=== PATIENT | female | born 1945 | race Caucasian/White ===

== ENCOUNTER 2017-11-17 18:08 | Inpatient (IN) ==
--- NOTE | 2017-11-17 19:47 | Emergency Department Note ---
Disposition Clinical Impression: Abdominal wall mass, Hypokalemia, Prolonged QT interval Disposition: Admitted As Inpatient Condition: Good Referrals: Danilo Sharma DO [Primary Care Provider] - Forms: ED Satisfaction Letter, Work/School Release Abdominal Pain HPI - General Chief Complaint: ED Abdominal Pain Stated Complaint: Hernia Time Seen by Provider: 11/17/17 19:30 Source: patient Mode of arrival: ambulatory Limitations: no limitations Nursing Notes Reviewed: Yes Vital Signs Reviewed: Yes - History of Present Illness HPI Narrative: Patient with history of diabetes, CHF, hypertension, previous cholecystectomy, appendectomy, hysterectomy presenting today for evaluation of abdominal pain. She has a known right-sided abdominal hernia which she states has concern because her pain over the last week. The hernia itself is not a fascial defect with reducible contents. Is a bulging to the lateral aspect of her abdomen that is firm. She does have tenderness to this area. The patient has mild erythema over the overlying aspect possibly concerning for her these saucer. The patient herself states that she is had a decreased appetite but no nausea vomiting or change in bowel movements. She has chronic hematuria. No vaginal discharge. No fevers Pain Scale: 5 - Related Data Allergies Allergy/AdvReac Type Severity Reaction Status Date / Time codeine AdvReac Hallucinati Verified 11/17/17 18:12 ng Review of Systems: As Per HPI Constitutional: Denies: fever, chills Cardiovascular: Denies: chest pain, palpitations Respiratory: Denies: cough, dyspnea Gastrointestinal: Reports: abdominal pain, nausea. Denies: vomiting, diarrhea Genitourinary: Denies: urgency, dysuria, frequency Musculoskeletal: Denies: back pain Integumentary: Reports: rash Neurological: Denies: headache Physical Exam General: Well appearing, nontoxic, no acute distress Head: Normocephalic Atraumatic Eyes: PERRL, EOMI ENT: Airway patent, no stridor Neck: supple, no meningismus Chest: Lungs clear to auscultation bilateral Cardiac: Regular rate and rhythm, no murmurs, rubs or gallops Abdomen: soft, tenderness to the right mid and upper abdomen. The hernia is a continuation of the abdomen with no specific defect or contents are reducible. nondistended; no guarding, rebound, or tenderness to percussion Musculoskeletal: Calves symmetric, nontender Skin: Overlying the right side of the abdomen is a linear rash that is raised erythematous lesions approximately a centimeter in size not consistent with cellulitis but possible early zoster. Neuro: Alert and Oriented to person, place, and time; No focal deficit, Course - Reevaluation(s) Reevaluation #1: Discuss CT scan results with the radiologist. The radiologist read it as hematoma versus neoplasm. We had to give this without contrast secondary to her kidney function which limits the ability to see vascular flow. States sarcoma could look similar. The patient symptoms do not correlate with her trauma. She noticed the increasing mass from approximately 2 weeks ago. She is on aspirin. The ultrasound was placed over this area and did not see significant blood flow within the region. However, the patient does have a potassium of 2.6. EKG shows that she has got a prolonged QT which is new from previous. QTC see is 540. The patient will have a magnesium drawn and magnesium and potassium will be replaced. Potassium does correlate to her symptoms of weakness fatigue and generalized muscle cramps. Patient will be admitted for left white management as well as further investigation into mass. - Consultations Consultation #1: Discussed with hospitalist. Patient accepted for admission. Vital Signs Temperature 98.6 F 11/17/17 18:10 Pulse Rate 97 11/17/17 18:10 Respiratory Rate 16 11/17/17 18:10 Blood Pressure 152/89 11/17/17 18:10 O2 Sat by Pulse Oximetry 94 11/17/17 18:10 Temperature 98.6 F 11/17/17 18:10 Pulse Rate 88 11/17/17 19:12 Respiratory Rate 16 11/17/17 19:12 Blood Pressure 129/97 11/17/17 19:12 O2 Sat by Pulse Oximetry 97 11/17/17 19:12 Oxygen Delivery Oxygen Delivery Room Air Abdominal Pain - Lab Data Result diagrams: 11/17/17 19:32 11/17/17 19:32 Lab Results 11/17/17 11/17/17 11/17/17 Range/Units 19:32 19:32 19:40 WBC 15.0 H (4.3-11.1) K/mcL RBC 4.43 (3.82-4.97) M/mcL Hgb 10.4 L (11.5-15.4) g/dL Hct 35.5 (35.3-44.9) % MCV 80.1 L (83.0-100.0) fL MCH 23.5 L (28.0-33.3) pg MCHC 29.3 L (31.6-35.5) g/dL RDW 15.6 H (11.5-14.5) % Plt Count 407 H (140-400) K/mcL MPV 8.2 L (9.4-12.4) fL Immature Gran % 0.9 (0-4) % Seg Neutrophils % 79.8 % Lymphocytes % 10.6 % Monocytes % 6.5 % Eosinophils % 1.9 % Basophils % 0.3 % Neutrophils # 12.0 H (1.6-8.9) K/mcL Lymphocytes # 1.6 (0.6-4.6) K/mcL Monocytes # 1.0 (0.0-1.3) K/mcL Eosinophils # 0.3 (0.0-0.6) K/mcL Basophils # 0.0 (0.0-0.2) K/mcL Sodium 140 (136-145) mEq/L Potassium 2.6 L (3.5-5.1) mEq/L Chloride 93 L (98-107) mEq/L Carbon Dioxide 34 H (23-29) mEq/L BUN 19 (8-23) mg/dL Creatinine 1.52 H (0.60-1.20) mg/dL Est GFR ( Amer) 41 L (> 60) Est GFR (Non-Af Amer) 33 L (> 60) BUN/Creatinine Ratio 13 (6-26) Glucose 130 H (70-105) mg/dL Calculated Osmolality 294 (280-300) Lactic Acid (0.5-2.2) mmol/L Calcium 8.5 L (8.6-10.3) mg/dL Total Bilirubin 0.4 (0.3-1.0) mg/dL Direct Bilirubin 0.1 (0.0-0.2) mg/dL Indirect Bilirubin 0.3 (0.0-1.2) mg/dL AST 17 (13-39) Units/L ALT 11 (7-52) Units/L Alkaline Phosphatase 141 H (34-104) Units/L Troponin I 0.03 (< 0.04) ng/mL Serum Total Protein 7.8 (6.4-8.9) g/dL Albumin 3.1 L (3.5-5.7) g/dL Globulin 4.7 H (2.4-3.5) g/dL Albumin/Globulin Ratio 0.7 L (1.1-2.2) Lipase 36 (11-82) Units/L Urine Color Yellow (Yellow) Urine Clarity Clear (Clear) Urine pH 6.0 (5.0-8.0) pH Units Ur Specific [place] 1.010 (1.010-1.025) Urine Protein Trace (Neg-Trace) mg/dL Urine Glucose (UA) Normal (Normal) mg/dL Urine Ketones Negative (Negative) mg/dL Urine Blood Negative (Negative) Urine Nitrite Negative (Negative) Urine Bilirubin Negative (Negative) Urine Urobilinogen Normal (Normal) mg/dL Ur Leukocyte Esterase Small H (Negative) Urine Microscopic WBC 3-5 H (0-3) per hpf Ur Squamous Epith Cells Moderate H (None-Few) per lpf Urine Bacteria Few (None-Few) per hpf Hyaline Casts Few (None-Few) per lpf Ur Culture Indicated? YES A (NO) 11/17/17 Range/Units 19:52 WBC (4.3-11.1) K/mcL RBC (3.82-4.97) M/mcL Hgb (11.5-15.4) g/dL Hct (35.3-44.9) % MCV (83.0-100.0) fL MCH (28.0-33.3) pg MCHC (31.6-35.5) g/dL RDW (11.5-14.5) % Plt Count (140-400) K/mcL MPV (9.4-12.4) fL Immature Gran % (0-4) % Seg Neutrophils % % Lymphocytes % % Monocytes % % Eosinophils % % Basophils % % Neutrophils # (1.6-8.9) K/mcL Lymphocytes # (0.6-4.6) K/mcL Monocytes # (0.0-1.3) K/mcL Eosinophils # (0.0-0.6) K/mcL Basophils # (0.0-0.2) K/mcL Sodium (136-145) mEq/L Potassium (3.5-5.1) mEq/L Chloride (98-107) mEq/L Carbon Dioxide (23-29) mEq/L BUN (8-23) mg/dL Creatinine (0.60-1.20) mg/dL Est GFR ( Amer) (> 60) Est GFR (Non-Af Amer) (> 60) BUN/Creatinine Ratio (6-26) Glucose (70-105) mg/dL Calculated Osmolality (280-300) Lactic Acid 1.6 (0.5-2.2) mmol/L Calcium (8.6-10.3) mg/dL Total Bilirubin (0.3-1.0) mg/dL Direct Bilirubin (0.0-0.2) mg/dL Indirect Bilirubin (0.0-1.2) mg/dL AST (13-39) Units/L ALT (7-52) Units/L Alkaline Phosphatase (34-104) Units/L Troponin I (< 0.04) ng/mL Serum Total Protein (6.4-8.9) g/dL Albumin (3.5-5.7) g/dL Globulin (2.4-3.5) g/dL Albumin/Globulin Ratio (1.1-2.2) Lipase (11-82) Units/L Urine Color (Yellow) Urine Clarity (Clear) Urine pH (5.0-8.0) pH Units Ur Specific [place] (1.010-1.025) Urine Protein (Neg-Trace) mg/dL Urine Glucose (UA) (Normal) mg/dL Urine Ketones (Negative) mg/dL Urine Blood (Negative) Urine Nitrite (Negative) Urine Bilirubin (Negative) Urine Urobilinogen (Normal) mg/dL Ur Leukocyte Esterase (Negative) Urine Microscopic WBC (0-3) per hpf Ur Squamous Epith Cells (None-Few) per lpf Urine Bacteria (None-Few) per hpf Hyaline Casts (None-Few) per lpf Ur Culture Indicated? (NO)
[2017-11-17 19:52] LABS: Bilirubin,Urine Negative (Negative); Blood,Urine Negative (Negative); Clarity,Urine Clear (Clear); Color,Urine Yellow (Yellow); Glucose,Urine (UA) Normal (Normal); Ketones,Urine Negative (Negative); Leukocyte Esterase,Urine Small (Negative); Nitrite,Urine Negative (Negative); Protein,Urine Trace mg/dL (Neg-Trace); Urobilinogen,Urine Normal (Normal)
[2017-11-17 19:57] LABS: Bacteria,Urine Few per hpf (None-Few); Hyaline Casts,Urine Few per lpf (None-Few); Squamous Epithelial Cell,Urine Moderate per lpf (None-Few)
[2017-11-17 20:03] LABS: Basophils % 0.3 %; Eosinophils # 0.3 K/mcL (0.0-0.6); Eosinophils % 1.9 %; Hematocrit 35.5 % (35.3-44.9); Hemoglobin 10.4 g/dL (11.5-15.4); Immature Granulocytes % 0.9 % (0-4); Lymphocytes # 1.6 K/mcL (0.6-4.6); Lymphocytes % 10.6 %; Mean Corpuscular HGB Conc 29.3 g/dL (31.6-35.5); Mean Corpuscular Hemoglobin 23.5 pg (28.0-33.3); Mean Corpuscular Volume 80.1 fL (83.0-100.0); Mean Platelet Volume 8.2 fL (9.4-12.4); Monocytes % 6.5 %; Platelet Count 407 K/mcL (140-400); Red Blood Count 4.43 M/mcL (3.82-4.97); Red Cell Distribution Width 15.6 % (11.5-14.5); Segmented Neutrophils % 79.8 %
[2017-11-17 20:24] LABS: Albumin 3.1 g/dL (3.5-5.7); Albumin/Globulin Ratio 0.7 (1.1-2.2); Bilirubin,Direct 0.1 mg/dL (0.0-0.2); Bilirubin,Indirect 0.3 mg/dL (0.0-1.2); Bilirubin,Total 0.4 mg/dL (0.3-1.0); Calcium 8.5 mg/dL (8.6-10.3); Globulin 4.7 g/dL (2.4-3.5); Potassium 2.6 mEq/L (3.5-5.1); Total Protein 7.8 g/dL (6.4-8.9); Troponin I 0.03 ng/mL (< 0.04)
[2017-11-17 21:29] LABS: Magnesium 1.5 mg/dL (1.6-2.6)
[2017-11-17] MEDS ORDERED: Acetaminophen 325 MG TABLET PO PRN (22:43)
[2017-11-17] MEDS ORDERED: Naloxone 0.4 MG/ML INJ IVP PRN (22:43)
[2017-11-17] MEDS ORDERED: *HR* Heparin 5,000 UNIT/ML VIAL SQ SCH (22:45)
--- NOTE | 2017-11-17 22:54 | Internal Med History&Physical ---
<Marc Burgess - Last Filed: 11/17/17 23:27> Date of Encounter: 11/17/17 Time of Encounter: 22:52 Internal Medicine - H&P: HPI Chief complaint: abdominal pain Admitted From: Home Plans for Post Hospital Care: Home History of present illness: Ms. Beckham [facility] 72 [facility] that started couple days ago and progressively worsened. Patient does not radiate, is sharp. She denies fever,chills, N/V/D or changes in bowel movement, trauma. Family noted two weeks ago that patient had right sided abdominal bludge that has been increasing in size and today there is some erythema over it. Patient reports he feels like it is about to burst. Patient was concerned she is developing a hernia. She has had hx of hysterectomy, appendectomy and cholecystectomy. She denies weight loss, or history of cancer. She reports gaining 50 pounds in the last year. She reports family hx of lung cancer and her father had prostate cancer. Ct scan showed large soft tissue density mass within the right lateral abdominal wall wiht dimensions of [id number] with differential of rectus sheath hematoma and neoplasm. She was also seen to have elevated WBC, hypokalemia, hypomagnesemia, prolonged QT with QTC 540. Past Med Surg Social Fam HX - Past Medical History Medical history: CHF, COPD, diabetes, hyperlipidemia, hypertension Additional medical history: neuropathy Psychiatric history: depression - Past Surgical History Surgical History: appendectomy, cholecystectomy - Social History Smoking Status: Never smoker Alcohol use: none Drug use: none - Family History Father Hx Family Cancer: Yes (prostate) Mother Hx Family Cancer: Yes (lung) Internal Medicine - H&P: Meds Alendronate Sodium 70 mg PO TU 11/17/17 [History] Aspirin [[place] Aspirin EC] 81 mg PO DAILY 11/17/17 [History] Carvedilol [Coreg] 6.25 mg PO DAILY 11/17/17 [History] Citalopram [CeleXA] 20 mg PO HS 11/17/17 [History] Cyanocobalamin (Vitamin B-12) [B-12] 500 mcg PO DAILY 11/17/17 [History] Esomeprazole Magnesium [Nexium] 40 mg PO DAILY 11/17/17 [History] Furosemide [Lasix] 40 mg PO DAILY 11/17/17 [History] Gabapentin [Neurontin] 800 mg PO HS 11/17/17 [History] Lovastatin [Mevacor] 20 mg PO HS 11/17/17 [History] ALPRAZolam [Xanax 1 MG Tablet] 1 mg PO TID PRN 11/18/17 [History] Mirtazapine [Remeron] 15 mg PO HS 11/18/17 [History] OxyCODONE/APAP 10/325 [Percocet 10/325 MG] 1 each PO BID PRN 11/18/17 [History] Trazodone HCl 300 mg PO HS 11/18/17 [History] 3 Allergy/AdvReac Type Severity Reaction Status Date / Time latex Allergy Rash Verified 11/17/17 21:55 codeine AdvReac Hallucinati Verified 11/17/17 18:12 ng All Systems PM: A 10-system review of systems was performed and is negative for pertinent findings except as documented above in the HPI. Review of systems: Constitutional: Denies fever, chills HEENT: Denies headache, trauma, blurry vision, eye discharge, ear pain, ear discharge neck pain, sore throat, rhinorrhea Heart: Denies chest pain palpitations, LE edema Lungs: Denies shortness of breath cough Abdomen: Reports abdominal pain. denies nausea vomiting diarrhea. Reports right abdominal bulging/ MSK: Denies back pain, falls, joint pain Kidney: Denies dysuria, hematuria Skin: Denies rash, ulcers Neuro: Denies numbness and tingling Psych: denies axniety, depression - Constitutional Vitals: Temp Pulse Resp BP Pulse Ox 98.6 F 88 16 137/70 97 11/17/17 19:30 11/17/17 21:46 11/17/17 21:46 11/17/17 21:46 11/17/17 21:46 Exam: General: pleasant, without distress HEENT: Head atraumatic, normocephalic, EOMI, PERRL, absent ear discharge or trauma, Moist Mucous Membranes, uvula midline Neck: nontender to palpation, absent lymphadenopathy, Cardiovascualr: Regular rate and rhythm with no murmur, absent gallops or rubs, absent pedal edema, radial pulses 2 out of 4 Lungs: Clear to auscultation bilaterally, not in respiratory distress Abdomen: there is firmness and mild tenderness and erythema over the lateral left abdominal wall with palpable outline of a mass, positive bowel sounds, absent hepatomegaly Skin: dry scaly skin over shins, erythema left abdominal wall MSK: absent clubbing, cyanosis, joints without swelling Neuro: Cranial nerves II through XII intact, UE and LE sensation equal bilaterally, UE and LEstrength 5/5, alert oriented 3, Psych: good insight and judgment, Internal Med - H&P Results - Labs CBC & Chem 7: 11/17/17 19:32 11/17/17 19:32 - Assessment and plan (1) Abdominal wall mass Current Visit: Yes Status: Acute Assessment and plan: Patient presents with abdominal pain and is found to have lateral abdominal wall mass on CT abdomen/pelvis size [id number] unclear etiology patient is in [place] therefore could not complete imaging with IV dye tylenol for pain prn patient denies weight loss, N/V/D, hx of cancer plan: abdominal US. consult to surgery. regular diet now and NPO at midnight. (2) Hypomagnesemia Current Visit: Yes Status: Acute Assessment and plan: presented with magnesium of 1.5 replacing recheck in AM (3) Hypokalemia Current Visit: Yes Status: Acute Assessment and plan: potassium was 2.6 will be given total 120meQ recheck in the AM (4) Prolonged QT interval Current Visit: Yes Status: Acute Assessment and plan: 2nd to hypokalemia and hypomagnesemia EKG showed QTC of 540 replacing electrolytes recheck EKG (5) Congestive heart failure Current Visit: Yes Status: Chronic Assessment and plan: hx of congestive heart failure unclear if systolic vs diastolic as patient not seen in [place] for this is on lasix at home will hold 2nd to hypokalemia Qualifiers: Heart failure type: unspecified Heart failure chronicity: chronic Qualified Code(s): I50.9 - Heart failure, unspecified (6) COPD (chronic obstructive pulmonary disease) Current Visit: Yes Status: Chronic Assessment and plan: hx of COPD not in exacerbation 2nd to 2nd hand smoking and 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 BMP in morning. Qualifiers: Chronic kidney disease stage: stage 3 (moderate) Qualified Code(s): N18.3 - Chronic kidney disease, stage 3 (moderate) (8) Asymptomatic bacteriuria Current Visit: Yes Status: Acute Assessment and plan: urinalysis shows few bacteria and leukocyte esterase patient denies dysuria, urinary frequency and urgency she is afebrile no need for antibiotics - Time Spent With Patient Total time spent is greater than 50% in coordination of care (as documented) at patient's floor/unit and/or counseling patient: <Lakhwinder Singh - Last Filed: 11/19/17 08:42> Date of Encounter: 11/17/17 Internal Medicine - H&P: HPI History of present illness: Ms. Beckham is a 72 year old female All Systems PM: A 10-system review of systems was performed and is negative for pertinent findings except as documented above in the HPI. - Constitutional Vitals: Temp Pulse Resp BP Pulse Ox 98.7 F 78 12 116/62 96 11/19/17 06:55 11/19/17 06:55 11/19/17 07:38 11/19/17 06:55 11/19/17 07:38 Internal Med - H&P Results - Labs CBC & Chem 7: 11/19/17 04:00 11/19/17 04:00 Labs: Short CBC 11/19/17 Range/Units 04:00 WBC 13.2 H (4.3-11.1) K/mcL Hgb 9.7 L (11.5-15.4) g/dL Hct 33.2 L (35.3-44.9) % Plt Count 368 (140-400) K/mcL Neutrophils # 10.6 H (1.6-8.9) K/mcL BMP 11/18/17 11/19/17 04:03 04:00 Sodium 139 138 Potassium 3.4 L D 3.8 Chloride 97 L 99 Carbon Dioxide 33 H 31 H BUN 17 16 Creatinine 1.28 H 1.37 H Glucose 121 H 125 H Calcium 8.3 L 8.7 Cardiac Enzymes 11/19/17 Range/Units 04:00 Troponin I 0.03 (< 0.04) ng/mL - Impressions ITS Impressions Retroperitoneal Abscess Drainage 11/18/17 00:00 IMPRESSION: Successful ultrasound guided placement of 10 [place] abscess drainage catheter into the right abdominal wall fluid collection. D/ / Zoran Morgan / Zoran Morgan Interpreting Provider: Zoran Morgan - Assessment and plan (1) Abdominal wall mass Current Visit: Yes Status: Acute (2) Hypokalemia Current Visit: Yes Status: Acute (3) Prolonged QT interval Current Visit: Yes Status: Acute (4) Hypomagnesemia Current Visit: Yes Status: Acute (5) Congestive heart failure Current Visit: Yes Status: Chronic Qualifiers: Heart failure type: unspecified Heart failure chronicity: chronic Qualified Code(s): I50.9 - Heart failure, unspecified (6) COPD (chronic obstructive pulmonary disease) Current Visit: Yes Status: Chronic Qualifiers: COPD type: emphysema Emphysema type: unspecified Qualified Code(s): J43.9 - Emphysema, unspecified (7) CKD (chronic kidney disease) Current Visit: Yes Status: Chronic Qualifiers: Chronic kidney disease stage: stage 3 (moderate) Qualified Code(s): N18.3 - Chronic kidney disease, stage 3 (moderate) (8) Asymptomatic bacteriuria Current Visit: Yes Status: Acute (9) Fall Current Visit: Yes Status: Acute Qualifiers: Encounter type: initial encounter Qualified Code(s): W19.XXXA - Unspecified fall, initial encounter - Time Spent With Patient Total time spent is greater than 50% in coordination of care (as documented) at patient's floor/unit and/or counseling patient: - Attending Attestation Patient seen and examined. Case discussed with resident. Agree with assessment and plan. Surgery consult for the morning for further evaluation of abdominal soft tissue mass
[2017-11-17] MEDS ORDERED: Ipratropium/Albuterol Neb 3 ML IH PRN (23:19)
[2017-11-18] MEDS ORDERED: Naloxone 0.4 MG/ML INJ IVP PRN (00:35)
[2017-11-18 04:30] LABS: Basophils % 0.3 %; Eosinophils # 0.2 K/mcL (0.0-0.6); Eosinophils % 1.3 %; Hematocrit 33.3 % (35.3-44.9); Immature Granulocytes % 0.7 % (0-4); Lymphocytes # 1.3 K/mcL (0.6-4.6); Lymphocytes % 9.4 %; Mean Platelet Volume 8.4 fL (9.4-12.4); Monocytes # 0.8 K/mcL (0.0-1.3); Monocytes % 5.6 %; Neutrophils # 11.2 K/mcL (1.6-8.9); Platelet Count 394 K/mcL (140-400); Red Blood Count 4.16 M/mcL (3.82-4.97); Red Cell Distribution Width 15.7 % (11.5-14.5); Segmented Neutrophils % 82.7 %
[2017-11-18 04:46] LABS: Calcium 8.3 mg/dL (8.6-10.3); Potassium 3.4 mEq/L (3.5-5.1)
[2017-11-18] MEDS: Budesonide/Formoterol 160/4.5 1 PUFF INH IH SCH ×2 (08:04→21:47)
[2017-11-18] MEDS ORDERED: Potassium Chloride 40 MEQ, Lidocaine 1% 2 ML in D5% in Water 500 ML IVPB ONE (08:26)
--- NOTE | 2017-11-18 08:32 | Internal Med Progress Note ---
<Rosa Teresa - Last Filed: 11/18/17 13:10> Hospitalist Progress Note - Encounter Date of Encounter: 11/18/17 Time of Encounter: 08:27 - Subjective Interval History: Mervat is a 72 y/o female with a pmh of DM, COPD, CKD, and CHF who presented to the ED with abdominal pain and found to have an abdominal wall mass. Today patient is stating the pain has worsened overnight, pain is an 8/10. She states that 4 days ago she fell on her back but did not hit her abdomen. She states that her legs just gave out. She denies using SQ insulin or injecting anything into her abdomen. - Exam Vitals: Temp Pulse Resp BP Pulse Ox 99.0 F 99 16 133/68 94 11/18/17 06:50 11/18/17 06:50 11/18/17 08:07 11/18/17 06:50 11/18/17 08:07 Exam: Constitutional: Alert, in no acute distress Head: Normocephalic, atraumatic Heart: Normal, regular rate and rhythm, no murmurs Lungs: Clear to auscultation, no wheezes, rales, or rhonchi Abdomen: diffuse tenderness on the right upper and lower quadrant with maximal point over erythemtous skin, distended on the right, Soft, nontender, bowel sounds present and normal Extremities: No edema, No clubbing, radial pulse +2/4, capillary refill <2sec. Skin: Skin warm and dry,no jaundice Neurologic: Cranial nerves II through XII grossly intact, Psych: Cooperative with exam, good eye contact, cognitive function intact, speech clear, thought process logical, and goal directed - Assessment and Plan (1) Abdominal wall mass Current Visit: Yes Status: Acute Assessment and Plan: CC: abd pain, CT showed large soft tissue density mass within the right lateral abdominal wallwith dimensions of 9 x 10 by 14 cm and mild surrounding induration of subcutaneous tissues, ddx includes rectal sheath hematoma vs. neoplasm (possible sarcoma). Less likely infectious as vitals are normal, mildly elevated WBC but lactic acid normal. IR consulted for biopsy to help differential, believe it to be more of a fluid con collection than a mass. Surgery consulted for management after biopsy. IR aspiration showed tootie pus. Plan: - start Vanco and Zosyn ( 11/18/17) - surgery consulted, awaiting biopsy results - Pain: oxcodone 5mg SL Q6H , Tylenol - diet: regular - dispo: Determine etiology (2) Hypokalemia Current Visit: Yes Status: Acute Assessment and Plan: Likely due to home Lasix without potassium supplement. Initial potassium was 2.6 , replaced potassium with 120meq. Current potassium = 3.4, Plan: -replaced with 40 KCl IV - Will recheck EKG -consider sending home on potassium chloride supplement. (3) Prolonged QT interval Current Visit: Yes Status: Acute Assessment and Plan: EKG showed QTC of 540. 2/2 to hypokalemia and hypomagnesemia. Replaced electrolytes. Plan: -repeat EKG - continue to replace electrolytes as needed (4) Hypomagnesemia Current Visit: Yes Status: Acute Assessment and Plan: Due to hypokalemia caused by Lasix. Presented with magnesium of 1.5, replaced with 4g. Plan: -Mg level pending, replace as needed (5) Congestive heart failure Current Visit: Yes Status: Chronic Assessment and Plan: hx of congestive heart failure, unclear if systolic vs diastolic as patient not seen in [place] for this and no Echo in our records. 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 BMP in morning. (8) Asymptomatic bacteriuria Current Visit: Yes Status: Acute Assessment and Plan: UA shows few bacteria and leukocyte esterase. patient denies dysuria, urinary frequency and urgency. she is afebrile, no need for antibiotics (9) Fall Current Visit: Yes Status: Acute Assessment and Plan: Fall 4 days ago and fell on her back. PT/OT evaluation. DVT Prophylaxis: SCDs due to abdominal mass Heparin SQ contraindicated - Time Spent with Patient Total time spent is greater than 50% in coordination of care (as documented) at patient's floor/unit and/or counseling patient: Plan of Care Discussed with: patient Internal Medicine: Result - Labs CBC & Chem 7: 11/18/17 04:03 11/18/17 04:03 Labs: Short CBC 11/18/17 Range/Units 04:03 WBC 13.5 H (4.3-11.1) K/mcL Hgb 10.0 L (11.5-15.4) g/dL Hct 33.3 L (35.3-44.9) % Plt Count 394 (140-400) K/mcL Neutrophils # 11.2 H (1.6-8.9) K/mcL BMP 11/18/17 04:03 Sodium 139 Potassium 3.4 L D Chloride 97 L Carbon Dioxide 33 H BUN 17 Creatinine 1.28 H Glucose 121 H Calcium 8.3 L Consult Discharge Plan - Plan Referrals: Danilo Sharma DO [Primary Care Provider] - <Joshua Riley - Last Filed: 11/18/17 17:54> Hospitalist Progress Note - Encounter Date of Encounter: 11/18/17 - Exam Vitals: Temp Pulse Resp BP Pulse Ox 99.0 F 94 16 117/82 91 11/18/17 14:02 11/18/17 14:02 11/18/17 14:02 11/18/17 14:02 11/18/17 14:02 - Assessment and Plan (1) Abdominal wall mass Current Visit: Yes Status: Acute (2) Hypokalemia Current Visit: Yes Status: Acute (3) Prolonged QT interval Current Visit: Yes Status: Acute (4) Hypomagnesemia Current Visit: Yes Status: Acute (5) Congestive heart failure Current Visit: Yes Status: Chronic (6) COPD (chronic obstructive pulmonary disease) Current Visit: Yes Status: Chronic (7) CKD (chronic kidney disease) Current Visit: Yes Status: Chronic (8) Asymptomatic bacteriuria Current Visit: Yes Status: Acute (9) Fall Current Visit: Yes Status: Acute - Time Spent with Patient Total time spent is greater than 50% in coordination of care (as documented) at patient's floor/unit and/or counseling patient: Internal Medicine: Result - Labs CBC & Chem 7: 11/18/17 04:03 11/18/17 04:03 Labs: Short CBC 11/18/17 Range/Units 04:03 WBC 13.5 H (4.3-11.1) K/mcL Hgb 10.0 L (11.5-15.4) g/dL Hct 33.3 L (35.3-44.9) % Plt Count 394 (140-400) K/mcL Neutrophils # 11.2 H (1.6-8.9) K/mcL BMP 11/18/17 04:03 Sodium 139 Potassium 3.4 L D Chloride 97 L Carbon Dioxide 33 H BUN 17 Creatinine 1.28 H Glucose 121 H Calcium 8.3 L - Impressions Impressions Retroperitoneal Abscess Drainage 11/18/17 00:00 IMPRESSION: Successful ultrasound guided placement of 10 [place]i abscess drainage catheter into the right abdominal wall fluid collection. D/ / Zoran Morgan / Zoran Morgan Interpreting Provider: Zoran Morgan - Attending Attestation I examined this patient and my medical decision-making was reviewed with the Resident Physician. I agree with the documented findings, disposition and treatment plan as described except to the extent set forth below. <Rosa Teresa - Last Filed: 11/18/17 13:10> (5) Congestive heart failure Qualifiers: Heart failure type: unspecified Heart failure chronicity: chronic Qualified Code(s): I50.9 - Heart failure, unspecified (6) COPD (chronic obstructive pulmonary disease) Qualifiers: COPD type: emphysema Emphysema type: unspecified Qualified Code(s): J43.9 - Emphysema, unspecified (7) CKD (chronic kidney disease) Qualifiers: Chronic kidney disease stage: stage 3 (moderate) Qualified Code(s): N18.3 - Chronic kidney disease, stage 3 (moderate) (9) Fall Qualifiers: Encounter type: initial encounter Qualified Code(s): W19.XXXA - Unspecified fall, initial encounter <Joshua Riley - Last Filed: 11/18/17 17:54> (5) Congestive heart failure Qualifiers: Heart failure type: unspecified Heart failure chronicity: chronic Qualified Code(s): I50.9 - Heart failure, unspecified (6) COPD (chronic obstructive pulmonary disease) Qualifiers: COPD type: emphysema Emphysema type: unspecified Qualified Code(s): J43.9 - Emphysema, unspecified (7) CKD (chronic kidney disease) Qualifiers: Chronic kidney disease stage: stage 3 (moderate) Qualified Code(s): N18.3 - Chronic kidney disease, stage 3 (moderate) (9) Fall Qualifiers: Encounter type: initial encounter Qualified Code(s): W19.XXXA - Unspecified fall, initial encounter
[2017-11-18] MEDS ORDERED: traMADol 50 MG TABLET PO PRN (09:00)
[2017-11-18] MEDS: OXYCODONE Oral CONC 10 MG/0.5 ML ORAL.SYG SL PRN (09:54)
--- NOTE | 2017-11-18 10:28 | IR Procedure Note ---
Date of procedure: 11/18/17 Consent Obtained: Verbal consent, Written consent Timeout: Correct patient and procedure verified, Correct site verified, Time out performed, Skin prep completed Local anesthetic: Lidocaine 1% Indications: right abdominal wall fluid collection Procedure Performed: fluid collection aspiration and drain placement Was there an executive personal assistant present: No Site/Technique: right abd wall Results/Findings: tootie pus aspirated from collection Estimated blood loss (cc): 0 Complications: None; Tolerated procedure well Post Procedure Treatment Plan: drain to suction bulb Specimen: 10 cc pus
[2017-11-18] MEDS: Aspirin Enteric Coated 81 MG Tablet PO SCH (11:32)
[2017-11-18] MEDS: Gabapentin 400 MG CAPSULE PO SCH ×3 (11:38→20:38)
[2017-11-18 13:54] LABS: Magnesium 1.9 mg/dL (1.6-2.6)
[2017-11-18] MEDS ORDERED: Piperacillin/Tazobactam 3.375 GM in D5% in Water (Mini-Bag+) 100 ML IVPB SCH (16:00)
[2017-11-18] MEDS: Piperacillin/Tazobactam 3.375 GM in 0.9 % Sodium Chloride Mini Bag 100 ML IVPB SCH ×2 (16:39→22:45)
[2017-11-18] MEDS ORDERED: Piperacillin/Tazobactam 2.25 GM in 0.9 % Sodium Chloride Mini Bag 100 ML IVPB SCH (18:00)
--- NOTE | 2017-11-18 19:04 | General Surgery Consult Note ---
Date of Encounter: 11/18/17 Time of Encounter: 19:01 History of Present Illness Consult date: 11/18/17 Reason for consult: other (right flank mass) Requesting physician: Marc Burgess History of present illness: This is a delayed Surgical note 72 yo admitted for further evaluation and treatment abdominal pain and right- sided abdominal mass. The patient is described of known right sided abdominal hernia which is reported to have become more painful over the past week. Examination the emergency department did not describe the fascial defect with reducible contents a prominent mass/bulge was evident and described. CT abdomen and pelvis describes a large hiatal hernia with a small amount of fluid within the hernia sac. Mild bibasilar segmental airspace disease is noted as well as a moderate amount of pneumobilia believed to be related to prior sphincterotomy. The osseous structures appear to be intact. A large soft tissue density within the right lateral abdominal wall measuring 9 x 10 x 14 cm is described. Mild surrounding induration of the subcutaneous tissues also described. This mass did not contain any internal gas bubbles or obvious hematocrit level. On my review of this CT the mass appeared to be more fluid such as hematoma or abscess rather than solid mass such as a neoplasm. The patient's past medical history includes diabetes, CHF, hypertension, COPD, hyperlipidemia, depression and a nonspecific neuropathy. Surgical history includes appendectomy and cholecystectomy After reviewing the CT I contacted and spoken with the admitting hospitalist, Dr Medina. There is no evidence of a hernia as the fascial planes deep to the abdominal wall mass were intact. There was no omental or bowel involvement. I recommended that interventional radiology be consulted for percutaneous aspiration and if necessary aerobic and anaerobic cultures. Preparation for this consultation a PT INR was ordered and the subcutaneous heparin discontinued Earlier this morning the patient was seen by interventional radiology, Dr. Morgan. Dr. Ray performed a percutaneous image guided drainage of this mass and describes evacuation of tootie pus. The pus was aspirated and sent for cultures. A drain was placed. Later today I spoke with Dr. Teresa regarding the drainage procedure and whether surgical intervention would become necessary. Recommendations included maintained suction to the drain, await culture results. Continue broad-spectrum antibiotics including anti-MRSA therapy until the cultures direct more specific therapy. Surgical intervention will be deferred pending of the drainage procedure to evacuate the abscess. I will follow along with you and be available should surgical evaluation/ intervention become necessary. Past Med Surg Social Fam HX - Past Medical History Medical history: CHF, COPD, diabetes, hyperlipidemia, hypertension Additional medical history: neuropathy Psychiatric history: depression - Past Surgical History Surgical History: appendectomy, cholecystectomy, hysterectomy - Social History Smoking Status: Never smoker Smokeless Tobacco Status: No Alcohol use: none Drug use: none - Family History Father Hx Family Cancer: Yes (prostate) Mother Hx Family Cancer: Yes (lung) Medications and Allergies Alendronate Sodium 70 mg PO TU 11/17/17 [History] Aspirin [Anson Aspirin EC] 81 mg PO DAILY 11/17/17 [History] Carvedilol [Coreg] 6.25 mg PO DAILY 11/17/17 [History] Citalopram [CeleXA] 20 mg PO HS 11/17/17 [History] Cyanocobalamin (Vitamin B-12) [B-12] 500 mcg PO DAILY 11/17/17 [History] Esomeprazole Magnesium [Nexium] 40 mg PO DAILY 11/17/17 [History] Furosemide [Lasix] 40 mg PO DAILY 11/17/17 [History] Gabapentin [Neurontin] 800 mg PO HS 11/17/17 [History] Lovastatin [Mevacor] 20 mg PO HS 11/17/17 [History] ALPRAZolam [Xanax 1 MG Tablet] 1 mg PO TID PRN 11/18/17 [History] Mirtazapine [Remeron] 15 mg PO HS 11/18/17 [History] OxyCODONE/APAP 10/325 [Percocet 10/325 MG] 1 each PO BID PRN 11/18/17 [History] Trazodone HCl 300 mg PO HS 11/18/17 [History] 3 Allergy/AdvReac Type Severity Reaction Status Date / Time latex Allergy Rash Verified 11/17/17 21:55 codeine AdvReac Hallucinati Verified 11/17/17 18:12 ng Review of Systems All systems PM: The remainder of the systems were reviewed and are negative General Surgery Exam Initial Vital Signs Temp Pulse Resp BP Pulse Ox 98.6 F 97 16 152/89 94 11/17/17 18:10 11/17/17 18:10 11/17/17 18:10 11/17/17 18:10 11/17/17 18:10 Exam Initial Vital Signs Temp Pulse Resp BP Pulse Ox 98.6 F 97 16 152/89 94 11/17/17 18:10 11/17/17 18:10 11/17/17 18:10 11/17/17 18:10 11/17/17 18:10 Results - Labs 11/18/17 04:03 11/18/17 04:03 Abnormal lab results WBC 13.5 K/mcL (4.3-11.1) H 11/18/17 04:03 Hgb 10.0 g/dL (11.5-15.4) L 11/18/17 04:03 Hct 33.3 % (35.3-44.9) L 11/18/17 04:03 MCV 80.0 fL (83.0-100.0) L 11/18/17 04:03 MCH 24.0 pg (28.0-33.3) L 11/18/17 04:03 MCHC 30.0 g/dL (31.6-35.5) L 11/18/17 04:03 RDW 15.7 % (11.5-14.5) H 11/18/17 04:03 MPV 8.4 fL (9.4-12.4) L 11/18/17 04:03 Neutrophils # 11.2 K/mcL (1.6-8.9) H 11/18/17 04:03 Potassium 3.4 mEq/L (3.5-5.1) L D 11/18/17 04:03 Chloride 97 mEq/L (98-107) L 11/18/17 04:03 Carbon Dioxide 33 mEq/L (23-29) H 11/18/17 04:03 Creatinine 1.28 mg/dL (0.60-1.20) H 11/18/17 04:03 Est GFR ( Amer) 49 (> 60) L 11/18/17 04:03 Est GFR (Non-Af Amer) 41 (> 60) L 11/18/17 04:03 Glucose 121 mg/dL (70-105) H 11/18/17 04:03 POC Glucose 121 mg/dL (70-99) H 11/18/17 05:56 Calcium 8.3 mg/dL (8.6-10.3) L 11/18/17 04:03 Alkaline Phosphatase 141 Units/L (34-104) H 11/17/17 19:32 Albumin 3.1 g/dL (3.5-5.7) L 11/17/17 19:32 Globulin 4.7 g/dL (2.4-3.5) H 11/17/17 19:32 Albumin/Globulin Ratio 0.7 (1.1-2.2) L 11/17/17 19:32 Ur Leukocyte Esterase Small (Negative) H 11/17/17 19:40 Urine Microscopic WBC 3-5 per hpf (0-3) H 11/17/17 19:40 Ur Squamous Epith Cells Moderate per lpf (None-Few) H 11/17/17 19:40 Ur Culture Indicated? YES (NO) A 11/17/17 19:40 Diabetes panel 11/18/17 Range/Units 04:03 Sodium 139 (136-145) mEq/L Potassium 3.4 L D (3.5-5.1) mEq/L Chloride 97 L (98-107) mEq/L Carbon Dioxide 33 H (23-29) mEq/L BUN 17 (8-23) mg/dL Creatinine 1.28 H (0.60-1.20) mg/dL Glucose 121 H (70-105) mg/dL Calcium 8.3 L (8.6-10.3) mg/dL Calcium panel 11/18/17 Range/Units 04:03 Calcium 8.3 L (8.6-10.3) mg/dL Pituitary panel 11/18/17 Range/Units 04:03 Sodium 139 (136-145) mEq/L Potassium 3.4 L D (3.5-5.1) mEq/L Chloride 97 L (98-107) mEq/L Carbon Dioxide 33 H (23-29) mEq/L BUN 17 (8-23) mg/dL Creatinine 1.28 H (0.60-1.20) mg/dL Glucose 121 H (70-105) mg/dL Calcium 8.3 L (8.6-10.3) mg/dL Adrenal panel 11/18/17 Range/Units 04:03 Sodium 139 (136-145) mEq/L Potassium 3.4 L D (3.5-5.1) mEq/L Chloride 97 L (98-107) mEq/L Carbon Dioxide 33 H (23-29) mEq/L BUN 17 (8-23) mg/dL Creatinine 1.28 H (0.60-1.20) mg/dL Glucose 121 H (70-105) mg/dL Calcium 8.3 L (8.6-10.3) mg/dL All other labs normal. Consult Discharge Plan - Plan Referrals: Danilo Sharma DO [Primary Care Provider] -
[2017-11-18] MEDS: traZODone 50 MG TABLET PO SCH (20:38)
[2017-11-19] MEDS: OXYCODONE Oral CONC 10 MG/0.5 ML ORAL.SYG SL PRN (03:26)
[2017-11-19 04:17] LABS: Basophils # 0.1 K/mcL (0.0-0.2); Basophils % 0.5 %; Eosinophils # 0.3 K/mcL (0.0-0.6); Eosinophils % 2.4 %; Hematocrit 33.2 % (35.3-44.9); Hemoglobin 9.7 g/dL (11.5-15.4); Immature Granulocytes % 1.4 % (0-4); Lymphocytes # 1.3 K/mcL (0.6-4.6); Lymphocytes % 9.5 %; Mean Corpuscular HGB Conc 29.2 g/dL (31.6-35.5); Mean Corpuscular Hemoglobin 23.7 pg (28.0-33.3); Mean Corpuscular Volume 81.2 fL (83.0-100.0); Mean Platelet Volume 8.1 fL (9.4-12.4); Monocytes # 0.8 K/mcL (0.0-1.3); Monocytes % 6.2 %; Neutrophils # 10.6 K/mcL (1.6-8.9); Platelet Count 368 K/mcL (140-400); Red Blood Count 4.09 M/mcL (3.82-4.97); Red Cell Distribution Width 15.9 % (11.5-14.5)
[2017-11-19 04:30] LABS: INR 1.4; Prothrombin Time 15.9 Seconds (9.4-12.1)
[2017-11-19 04:40] LABS: Calcium 8.7 mg/dL (8.6-10.3); Magnesium 1.8 mg/dL (1.6-2.6); Potassium 3.8 mEq/L (3.5-5.1)
[2017-11-19] MEDS: Piperacillin/Tazobactam 3.375 GM in 0.9 % Sodium Chloride Mini Bag 100 ML IVPB SCH ×3 (06:04→22:07)
[2017-11-19] MEDS: Budesonide/Formoterol 160/4.5 1 PUFF INH IH SCH ×2 (07:37→20:03)
--- NOTE | 2017-11-19 08:04 | Internal Med Progress Note ---
<Rosa Teresa - Last Filed: 11/19/17 08:16> Hospitalist Progress Note - Encounter Date of Encounter: 11/19/17 Time of Encounter: 08:15 - Subjective Interval History: Mervat is a 72 y/o female with a pmh of DM, COPD, CKD, and CHF who presented to the ED with abdominal pain and found to have an abdominal wall mass. Today patient is stating that she is still having pain in the area of the abscess. She does not feel pain his improved since drain placement. Denies SOB, edema. - Exam Vitals: Temp Pulse Resp BP Pulse Ox 98.7 F 78 12 116/62 96 11/19/17 06:55 11/19/17 06:55 11/19/17 07:38 11/19/17 06:55 11/19/17 07:38 Exam: Constitutional: Alert, in no acute distress Head: Normocephalic, atraumatic Heart: Normal, regular rate and rhythm, no murmurs Lungs: Clear to auscultation, no wheezes, rales, or rhonchi Abdomen: diffuse tenderness on the right upper and lower quadrant with maximal point over erythemtous skin with drain in place drainage is brown, opaque fluid, distended on the right, Soft, bowel sounds present and normal Extremities: No edema, No clubbing, radial pulse +2/4, capillary refill <2sec. Skin: Skin warm and dry,no jaundice Neurologic: Cranial nerves II through XII grossly intact, Psych: Cooperative with exam, good eye contact, cognitive function intact, speech clear, thought process logical, and goal directed - Assessment and Plan (1) Abdominal wall mass Current Visit: Yes Status: Acute Assessment and Plan: CC: abd pain, CT showed large soft tissue density mass within the right lateral abdominal wallwith dimensions of 9 x 10 by 14 cm and mild surrounding induration of subcutaneous tissues. IR placed drain which showed pus. Wound and blood cultures collected. Patient placed on Vanc and Zosyn 11/18/17 after cultures obtained. Surgery following clinical course. Plan: - continue Vanco and Zosyn ( 11/18/17) - blood cultures 11/18 - NGTD - wound cultures 11/18 - NGTD, - surgery consulted and following clinical course - Pain: oxcodone 5mg SL Q6H, Tramadol, Tylenol - diet: regular - dispo: awaiting blood and wound cultures (2) Hypokalemia Current Visit: Yes Status: Acute Assessment and Plan: Likely due to home Lasix without potassium supplement. Initial potassium was 2.6 , replaced potassium with 120meq. Current potassium = 3.8. Repeat EKG showed Qtc = 448. Improved with improvement of hypokalemia and hypomagnesemia. Plan: - start potassium 20mg daily, consider going home on due to Lasix use (3) Prolonged QT interval Current Visit: Yes Status: Acute Assessment and Plan: EKG showed QTC of 540. 2/2 to hypokalemia and hypomagnesemia. Replaced electrolytes. Repeat EKG showed Qtc = 448. Improved with improvement of hypokalemia and hypomagnesemia. Plan: - continue to replace electrolytes as needed - avoid prolonging QT meds (4) Hypomagnesemia Current Visit: Yes Status: Acute Assessment and Plan: Due to hypokalemia caused by Lasix. Presented with magnesium of 1.5, replaced with 4g. Mg = 1.8 Plan: -given Mg Oxide 400mg once, repeat level tomorrow (5) Congestive heart failure Current Visit: Yes Status: Chronic Assessment and Plan: hx of congestive heart failure, unclear if systolic vs diastolic as patient not seen in [place] for this and no Echo in our records. Plan: - hypokalemia resolving, can restart Lasix probably tomorrow. 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 BMP in morning. (8) Asymptomatic bacteriuria Current Visit: Yes Status: Acute Assessment and Plan: UA shows few bacteria and leukocyte esterase. patient denies dysuria, urinary frequency and urgency. she is afebrile but now antibiotics for abscess anyways. (9) Fall Current Visit: Yes Status: Acute Assessment and Plan: Fall 4 days ago and fell on her back. PT/OT evaluation. DVT Prophylaxis: SCDs due to abdominal mass Heparin SQ contraindicated - Time Spent with Patient Total time spent is greater than 50% in coordination of care (as documented) at patient's floor/unit and/or counseling patient: Plan of Care Discussed with: patient Internal Medicine: Result - Labs CBC & Chem 7: 11/19/17 04:00 11/19/17 04:00 Labs: Short CBC 11/19/17 Range/Units 04:00 WBC 13.2 H (4.3-11.1) K/mcL Hgb 9.7 L (11.5-15.4) g/dL Hct 33.2 L (35.3-44.9) % Plt Count 368 (140-400) K/mcL Neutrophils # 10.6 H (1.6-8.9) K/mcL BMP 11/18/17 11/19/17 04:03 04:00 Sodium 139 138 Potassium 3.4 L D 3.8 Chloride 97 L 99 Carbon Dioxide 33 H 31 H BUN 17 16 Creatinine 1.28 H 1.37 H Glucose 121 H 125 H Calcium 8.3 L 8.7 Cardiac Enzymes 11/19/17 Range/Units 04:00 Troponin I 0.03 (< 0.04) ng/mL - ABG Interpretation ABG results: PT/INR, D-dimer PT 15.9 Seconds (9.4-12.1) H 11/19/17 04:00 - Impressions Impressions Retroperitoneal Abscess Drainage 11/18/17 00:00 IMPRESSION: Successful ultrasound guided placement of 10 Frisian abscess drainage catheter into the right abdominal wall fluid collection. D/ / Zoran Morgan / Zoran Morgan Interpreting Provider: Zoran Morgan Consult Discharge Plan - Plan Referrals: Danilo Sharma DO [Primary Care Provider] - <Marleny Amato - Last Filed: 11/19/17 15:24> Hospitalist Progress Note - Encounter Date of Encounter: 11/19/17 - Exam Vitals: Temp Pulse Resp BP Pulse Ox 100.7 F H 91 17 125/69 95 11/19/17 15:05 11/19/17 15:05 11/19/17 15:05 11/19/17 15:05 11/19/17 15:05 - Assessment and Plan (1) Abdominal wall mass Current Visit: Yes Status: Acute (2) Hypokalemia Current Visit: Yes Status: Acute (3) Prolonged QT interval Current Visit: Yes Status: Acute (4) Hypomagnesemia Current Visit: Yes Status: Acute (5) Congestive heart failure Current Visit: Yes Status: Chronic (6) COPD (chronic obstructive pulmonary disease) Current Visit: Yes Status: Chronic (7) CKD (chronic kidney disease) Current Visit: Yes Status: Chronic (8) Asymptomatic bacteriuria Current Visit: Yes Status: Acute (9) Fall Current Visit: Yes Status: Acute - Time Spent with Patient Total time spent is greater than 50% in coordination of care (as documented) at patient's floor/unit and/or counseling patient: Internal Medicine: Result - Labs CBC & Chem 7: 11/19/17 04:00 11/19/17 04:00 Labs: Short CBC 11/19/17 Range/Units 04:00 WBC 13.2 H (4.3-11.1) K/mcL Hgb 9.7 L (11.5-15.4) g/dL Hct 33.2 L (35.3-44.9) % Plt Count 368 (140-400) K/mcL Neutrophils # 10.6 H (1.6-8.9) K/mcL BMP 11/19/17 04:00 Sodium 138 Potassium 3.8 Chloride 99 Carbon Dioxide 31 H BUN 16 Creatinine 1.37 H Glucose 125 H Calcium 8.7 Cardiac Enzymes 11/19/17 11/19/17 Range/Units 04:00 09:35 Troponin I 0.03 0.03 (< 0.04) ng/mL - ABG Interpretation ABG results: PT/INR, D-dimer PT 15.9 Seconds (9.4-12.1) H 11/19/17 04:00 - Attending Attestation I examined this patient and my medical decision-making was reviewed with the Resident Physician Dr. Teresa. I agree with the documented findings, disposition and treatment plan as described except to the extent set forth below. Ms. Beckham is a 72 year old female presents wtih cc of right abdominal pain that started couple days ago and progressively worsened. Ct scan showed large soft tissue density mass within the right lateral abdominal wall wiht dimensions of [id number] with differential of rectus sheath hematoma and neoplasm. Pt does have abd wall abscess, evaluated by surgery recommended IR abscess drainage. Patient had percutaneous drainage catheter placed in y/d. She still have some purulent discharge. However overall patient feels better today. Abd: Drainage cath + Heart: SS2+ RRR a/p 1. Acute abdominal wall abscess status post I&D by IR cont drainage cath continue broad-spectrum antibiotic waiting on wound culture appreciate surgery and IR recommendations <Rosa Teresa - Last Filed: 11/19/17 08:16> (5) Congestive heart failure Qualifiers: Heart failure type: unspecified Heart failure chronicity: chronic Qualified Code(s): I50.9 - Heart failure, unspecified (6) COPD (chronic obstructive pulmonary disease) Qualifiers: COPD type: emphysema Emphysema type: unspecified Qualified Code(s): J43.9 - Emphysema, unspecified (7) CKD (chronic kidney disease) Qualifiers: Chronic kidney disease stage: stage 3 (moderate) Qualified Code(s): N18.3 - Chronic kidney disease, stage 3 (moderate) (9) Fall Qualifiers: Encounter type: initial encounter Qualified Code(s): W19.XXXA - Unspecified fall, initial encounter <Marleny Amato - Last Filed: 11/19/17 15:24> (5) Congestive heart failure Qualifiers: Heart failure type: unspecified Heart failure chronicity: chronic Qualified Code(s): I50.9 - Heart failure, unspecified (6) COPD (chronic obstructive pulmonary disease) Qualifiers: COPD type: emphysema Emphysema type: unspecified Qualified Code(s): J43.9 - Emphysema, unspecified (7) CKD (chronic kidney disease) Qualifiers: Chronic kidney disease stage: stage 3 (moderate) Qualified Code(s): N18.3 - Chronic kidney disease, stage 3 (moderate) (9) Fall Qualifiers: Encounter type: initial encounter Qualified Code(s): W19.XXXA - Unspecified fall, initial encounter
[2017-11-19] MEDS ORDERED: Magnesium Oxide 400 MG TABLET PO ONE (09:00)
[2017-11-19] MEDS: Aspirin Enteric Coated 81 MG Tablet PO SCH (09:04)
[2017-11-19] MEDS: Gabapentin 400 MG CAPSULE PO SCH ×3 (09:06→22:06)
--- NOTE | 2017-11-19 14:03 | General Surgery Progress Note ---
Date of Encounter: 11/19/17 Time of Encounter: 13:58 Subjective Patient reports: feels better Narrative: General Surgery - Patient feeling better; diminished abdominal pain since the right anterior lateral abdominal wall abscess was drained. Copious foul-smelling feculent fluid, approximately 55 mL aspirated since placement of the drain yesterday. Patient is currently 99.6 but hemodynamically stable with a pulse of 61, respirations 18, blood pressure 104 65. Abdomen is obese, soft, without significant tenderness. Laboratories: Persistent leukocytosis 13.2; hemoglobin 9.7, hematocrit 33.2 PT 15.9, INR 1.4 Electrolytes within an acceptable range; BUN 16, creatinine 1.37 (history of elevated creatinine dating back to June 2016; estimated GFR ranging from 33-41) Cultures: Gram-negative edu; final identity and sensitivity still pending. Recommendation: Continue broad-spectrum antibiotic therapy until culture results can guide more specific treatment. \ Objective Vital Signs - Last 8 Hours Temp Pulse Resp BP Pulse Ox 11/19/17 10:22 99.6 F 61 18 104/65 100 11/19/17 07:38 12 96 11/19/17 06:55 98.7 F 78 14 116/62 96 Intake and Output 11/18/17 11/19/17 11/19/17 23:59 07:59 15:59 Intake Total 350 / 350 200 / 200 340 / 340 Output Total 20 / 20 470 / 470 Balance 330 / 330 -270 / -270 325 / 325 Intake: IV Fluids 350 / 350 100 / 100 100 / 100 Zosyn 3.375 GM In 0.9 % Sodium 100 / 100 100 / 100 100 / 100 Chloride (Mini-Bag +) 100 ML @ 25 mls/hr IVPB Q8H ITZ Rx#: [id number] Vancocin 1,250 MG In 0.9 % 250 / 250 Sodium Chloride 250 ML @ 166.67 mls/hr IVPB Q24H ITZ Rx#: [id number] Oral 0 / 0 100 / 100 240 / 240 Output: Urine 0 / 0 450 / 450 0 / 0 Wound Drainage 20 / 20 20 / 20 15 / 15 Right Abdomen 20 / 20 20 / 20 15 / 15 Other: Meal Dinner Lunch Percent of Meal Consumed 40% 100% Weight 93 kg Patient Weight 11/19/17 23:59 Weight 93 kg - Labs 11/19/17 04:00 11/19/17 04:00 Diabetes panel 11/19/17 Range/Units 04:00 Sodium 138 (136-145) mEq/L Potassium 3.8 (3.5-5.1) mEq/L Chloride 99 (98-107) mEq/L Carbon Dioxide 31 H (23-29) mEq/L BUN 16 (8-23) mg/dL Creatinine 1.37 H (0.60-1.20) mg/dL Glucose 125 H (70-105) mg/dL Calcium 8.7 (8.6-10.3) mg/dL Calcium panel 11/19/17 Range/Units 04:00 Calcium 8.7 (8.6-10.3) mg/dL Pituitary panel 11/19/17 Range/Units 04:00 Sodium 138 (136-145) mEq/L Potassium 3.8 (3.5-5.1) mEq/L Chloride 99 (98-107) mEq/L Carbon Dioxide 31 H (23-29) mEq/L BUN 16 (8-23) mg/dL Creatinine 1.37 H (0.60-1.20) mg/dL Glucose 125 H (70-105) mg/dL Calcium 8.7 (8.6-10.3) mg/dL Adrenal panel 11/19/17 Range/Units 04:00 Sodium 138 (136-145) mEq/L Potassium 3.8 (3.5-5.1) mEq/L Chloride 99 (98-107) mEq/L Carbon Dioxide 31 H (23-29) mEq/L BUN 16 (8-23) mg/dL Creatinine 1.37 H (0.60-1.20) mg/dL Glucose 125 H (70-105) mg/dL Calcium 8.7 (8.6-10.3) mg/dL Consult Discharge Plan - Plan Referrals: Danilo Sharma DO [Primary Care Provider] -
--- NOTE | 2017-11-19 17:14 | Electrocardiograph Report ---
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
--- NOTE | 2017-11-19 17:31 | Electrocardiograph Report ---
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
--- NOTE | 2017-11-19 17:32 | Electrocardiograph Report ---
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
--- NOTE | 2017-11-19 17:39 | Electrocardiograph Report ---
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
[2017-11-19] MEDS: traZODone 50 MG TABLET PO SCH (21:36)
[2017-11-20] MEDS: Piperacillin/Tazobactam 3.375 GM in 0.9 % Sodium Chloride Mini Bag 100 ML IVPB SCH ×2 (06:02→15:33)
[2017-11-20 06:36] LABS: Hematocrit 29.2 % (35.3-44.9); Hemoglobin 8.5 g/dL (11.5-15.4); Mean Corpuscular HGB Conc 29.1 g/dL (31.6-35.5); Mean Corpuscular Hemoglobin 23.2 pg (28.0-33.3); Mean Corpuscular Volume 79.6 fL (83.0-100.0); Mean Platelet Volume 8.5 fL (9.4-12.4); Platelet Count 311 K/mcL (140-400); Red Blood Count 3.67 M/mcL (3.82-4.97); Red Cell Distribution Width 16.2 % (11.5-14.5)
[2017-11-20 06:44] LABS: Calcium 8.5 mg/dL (8.6-10.3); Magnesium 1.9 mg/dL (1.6-2.6)
[2017-11-20] MEDS: Budesonide/Formoterol 160/4.5 1 PUFF INH IH SCH ×2 (07:21→20:01)
[2017-11-20 08:18] LABS: Eosinophils # 0.3 K/mcL (0.0-0.6); Hypochromasia Present (Not Present); Lymphocytes # 0.3 K/mcL (0.6-4.6); Monocytes # 0.8 K/mcL (0.0-1.3); Neutrophils # 11.9 K/mcL (1.6-8.9)
[2017-11-20] MEDS: Aspirin Enteric Coated 81 MG Tablet PO SCH (09:23)
--- NOTE | 2017-11-20 09:23 | Internal Med Progress Note ---
Hospitalist Progress Note - Encounter Date of Encounter: 11/20/17 Time of Encounter: 08:30 - Subjective Interval History: Ms. Beckham is a 72 year old female presents wtih cc of right abdominal pain that started couple days ago and progressively worsened. Ct scan showed large soft tissue density mass within the right lateral abdominal wall with dimensions of [id number] with differential of rectus sheath hematoma and neoplasm. Pt does have abd wall abscess, evaluated by surgery recommended IR abscess drainage. Patient had percutaneous drainage catheter placed in on 11/18/17. She still have some pus / purulent discharge. Had low grade temp last night with T max 100.7. However overall patient feels better today. - Exam Vitals: Temp Pulse Resp BP Pulse Ox 98.9 F 81 18 129/73 93 11/20/17 07:30 11/20/17 07:30 11/20/17 07:30 11/20/17 07:30 11/20/17 08:20 Exam: Gen: A, A, O x 3 Chest: Diminished BS b/l, o crackles no rales Heart: S1S2 + RRR No murmurs Abd: soft, NT, distended. Drainage cath over RUQ of Abd. Improving erythema and swelling noticed. - Assessment and Plan (1) Abdominal wall abscess Current Visit: Yes Status: Acute Assessment and Plan: s/p I & D by IR on 11/18/17 still has tootie pus draining through cath Surgery recommend irrigation Q shift will talk to surgeon again Fluid cx - G-ve rods, waiting on final report cont broad spec abx - Zosyn and Vanc for now july d/c vanc in AM (2) Abdominal wall cellulitis Current Visit: Yes Status: Acute Assessment and Plan: Improving (3) Abdominal wall mass Current Visit: Yes Status: Acute (4) Hypokalemia Current Visit: Yes Status: Acute Assessment and Plan: Improved (5) Prolonged QT interval Current Visit: Yes Status: Acute Assessment and Plan: EKG showed QTC of 540. 2/2 to hypokalemia and hypomagnesemia. Replaced electrolytes. Repeat EKG showed Qtc = 448. Improved with improvement of hypokalemia and hypomagnesemia. Cont close monitoring cont on Tele (6) Hypomagnesemia Current Visit: Yes Status: Acute Assessment and Plan: resolved (7) Congestive heart failure Current Visit: Yes Status: Chronic Assessment and Plan: hx of congestive heart failure, unclear if systolic vs diastolic as patient not seen in [place] for this and no Echo in our records. (8) COPD (chronic obstructive pulmonary disease) Current Visit: Yes Status: Chronic Assessment and Plan: not in exacerbation cont duonebs prn continue symbicort (9) CKD (chronic kidney disease) Current Visit: Yes Status: Chronic Assessment and Plan: Stable (10) Asymptomatic bacteriuria Current Visit: Yes Status: Acute Assessment and Plan: UA shows few bacteria and leukocyte esterase. However Urine cx - no growth (11) Fall Current Visit: Yes Status: Acute Assessment and Plan: Fall 4 days ago and fell on her back. PT/OT evaluation. - Time Spent with Patient Total time spent is greater than 50% in coordination of care (as documented) at patient's floor/unit and/or counseling patient: Internal Medicine: Result - Labs CBC & Chem 7: 11/20/17 05:57 11/20/17 05:57 Labs: Short CBC 11/20/17 Range/Units 05:57 WBC 13.2 H (4.3-11.1) K/mcL Hgb 8.5 L (11.5-15.4) g/dL Hct 29.2 L (35.3-44.9) % Plt Count 311 (140-400) K/mcL Neutrophils # 11.9 H (1.6-8.9) K/mcL BMP 11/20/17 05:57 Sodium 138 Potassium 4.0 Chloride 104 Carbon Dioxide 28 BUN 18 Creatinine 1.40 H Glucose 117 H Calcium 8.5 L - ABG Interpretation ABG results: PT/INR, D-dimer PT 15.9 Seconds (9.4-12.1) H 11/19/17 04:00 Consult Discharge Plan - Plan Referrals: Danilo Sharma DO [Primary Care Provider] - (7) Congestive heart failure Qualifiers: Heart failure type: unspecified Heart failure chronicity: chronic Qualified Code(s): I50.9 - Heart failure, unspecified (8) COPD (chronic obstructive pulmonary disease) Qualifiers: COPD type: emphysema Emphysema type: unspecified Qualified Code(s): J43.9 - Emphysema, unspecified (9) CKD (chronic kidney disease) Qualifiers: Chronic kidney disease stage: stage 3 (moderate) Qualified Code(s): N18.3 - Chronic kidney disease, stage 3 (moderate) (11) Fall Qualifiers: Encounter type: initial encounter Qualified Code(s): W19.XXXA - Unspecified fall, initial encounter
[2017-11-20] MEDS: Gabapentin 400 MG CAPSULE PO SCH ×2 (09:25→21:26)
[2017-11-20] MEDS: OXYCODONE Oral CONC 10 MG/0.5 ML ORAL.SYG SL PRN ×3 (09:29→21:26)
[2017-11-20] MEDS ORDERED: Acetaminophen 325 MG TABLET PO PRN (09:53)
--- NOTE | 2017-11-20 11:03 | General Surgery Progress Note ---
Date of Encounter: 11/20/17 Time of Encounter: 10:59 Subjective Patient reports: no new complaints, feels better Narrative: General Surgery - Status post percutaneous drainage of large feculent abscess right upper anterior abdominal wall Culture show a pansensitive Escherichia coli. Patient remains afebrile, hemodynamically stable - pulse 81, respirations 18 , blood pressure 129/73 Pain and swelling diminished with percutaneous drainage. Fluid drainage approximately 55 mL for calendar day 11/19/17; 20 mL so far today Source of the abscess remains obscure/unidentified Recommendations: Discontinue Zosyn/vancomycin and initiate oral antibiotic therapy Repeat CT in a.m. for check on interval improvement with drainage and appropriate therapy. As surgery is not anticipated at this time, I will sign off. Thank you for this consultation. Call if needed Objective Vital Signs - Last 8 Hours Temp Pulse Resp BP Pulse Ox 11/20/17 08:20 93 11/20/17 07:30 98.9 F 81 18 129/73 93 11/20/17 07:22 93 11/20/17 03:38 98.8 F 77 18 139/82 93 Intake and Output 11/19/17 11/20/17 11/20/17 23:59 07:59 15:59 Intake Total 590 / 590 100 / 100 460 / 460 Output Total Balance 570 / 570 90 / 90 450 / 450 Intake: IV Fluids 350 / 350 100 / 100 100 / 100 Zosyn 3.375 GM In 0.9 % Sodium 100 / 100 100 / 100 100 / 100 Chloride (Mini-Bag +) 100 ML @ 25 mls/hr IVPB Q8H ITZ Rx#: [id number] Vancocin 1,250 MG In 0.9 % 250 / 250 Sodium Chloride 250 ML @ 166.67 mls/hr IVPB Q24H ITZ Rx#: [id number] Oral 240 / 240 360 / 360 Output: Wound Drainage Right Abdomen Other: Meal Dinner Breakfast Percent of Meal Consumed 85% 95% Stool Size Copious Moderate Stool Consistency soft liquid formed soft Stool Color Brown Brown # Voids 1 # Bowel Movements 1 Weight 92.2 kg Blood Glucose* 131 Patient Weight 11/20/17 23:59 Weight 92.2 kg - Labs 11/20/17 05:57 11/20/17 05:57 Diabetes panel 11/20/17 Range/Units 05:57 Sodium 138 (136-145) mEq/L Potassium 4.0 (3.5-5.1) mEq/L Chloride 104 (98-107) mEq/L Carbon Dioxide 28 (23-29) mEq/L BUN 18 (8-23) mg/dL Creatinine 1.40 H (0.60-1.20) mg/dL Glucose 117 H (70-105) mg/dL Calcium 8.5 L (8.6-10.3) mg/dL Calcium panel 11/20/17 Range/Units 05:57 Calcium 8.5 L (8.6-10.3) mg/dL Pituitary panel 11/20/17 Range/Units 05:57 Sodium 138 (136-145) mEq/L Potassium 4.0 (3.5-5.1) mEq/L Chloride 104 (98-107) mEq/L Carbon Dioxide 28 (23-29) mEq/L BUN 18 (8-23) mg/dL Creatinine 1.40 H (0.60-1.20) mg/dL Glucose 117 H (70-105) mg/dL Calcium 8.5 L (8.6-10.3) mg/dL Adrenal panel 11/20/17 Range/Units 05:57 Sodium 138 (136-145) mEq/L Potassium 4.0 (3.5-5.1) mEq/L Chloride 104 (98-107) mEq/L Carbon Dioxide 28 (23-29) mEq/L BUN 18 (8-23) mg/dL Creatinine 1.40 H (0.60-1.20) mg/dL Glucose 117 H (70-105) mg/dL Calcium 8.5 L (8.6-10.3) mg/dL Consult Discharge Plan - Plan Referrals: Danilo Sharma DO [Primary Care Provider] -
[2017-11-20] MEDS: cefTRIAXone 2,000 MG in Water for inj. (sterile) 20 ML 20 ML IVP SCH (17:55)
[2017-11-20] MEDS: traZODone 50 MG TABLET PO SCH (21:25)
--- NOTE | 2017-11-21 07:37 | Internal Med Progress Note ---
<MalickRosa - Last Filed: 11/21/17 12:32> Hospitalist Progress Note - Encounter Date of Encounter: 11/21/17 Time of Encounter: 10:00 - Subjective Interval History: Mervat is a 72 y/o female with a pmh of DM, COPD, CKD, and CHF who presented to the ED with abdominal pain and found to have an abdominal wall mass. Today patient is stating that she is still having pain in the area of the abscess but overall improvement since admission. - Exam Vitals: Temp Pulse Resp BP Pulse Ox 97.9 F 87 20 125/85 94 11/21/17 06:39 11/21/17 06:39 11/21/17 06:39 11/21/17 06:39 11/21/17 06:39 Exam: Constitutional: Alert, in no acute distress Head: Normocephalic, atraumatic Heart: Normal, regular rate and rhythm, no murmurs Lungs: On NC Clear to auscultation, no wheezes, rales, or rhonchi Abdomen: diffuse tenderness on the right upper and lower quadrant with drain in place drainage is brown, opaque fluid, distended on the right, Soft Extremities: No edema, No clubbing, radial pulse +2/4, capillary refill <2sec. Skin: Skin warm and dry,no jaundice Neurologic: Cranial nerves II through XII grossly intact, Psych: Cooperative with exam, good eye contact, cognitive function intact, speech clear, thought process logical, and goal directed - Assessment and Plan (1) Abdominal wall mass Current Visit: Yes Status: Acute Assessment and Plan: CC: abd pain, CT showed large soft tissue density mass within the right lateral abdominal wallwith dimensions of 9 x 10 by 14 cm and mild surrounding induration of subcutaneous tissues. IR placed drain which showed pus. Wound and blood cultures collected. Patient placed on Vanc and Zosyn 11/18/17 after cultures obtained. Surgery following clinical course. Plan: - abd CT scan this AM, slight decrease in size - restarted Vanco (day 1), continue Ceftriaxone ( day 2) - blood cultures 11/18 - NGTD - wound cultures 11/18 - e coli, gram + cocci - surgery consulted, appreciate recommendations for surgery - Pain: oxcodone 5mg SL Q6H, Tramadol, Tylenol - diet: regular, NPO at midnight - dispo: awaiting wound cultures sensitivities (2) Hypokalemia Current Visit: Yes Status: Acute Assessment and Plan: Resolved. (3) Prolonged QT interval Current Visit: Yes Status: Acute Assessment and Plan: EKG showed QTC of 540. 2/2 to hypokalemia and hypomagnesemia. Replaced electrolytes. Repeat EKG showed Qtc = 448. Improved with improvement of hypokalemia and hypomagnesemia. Plan: Cont close monitoring cont on Tele (4) Hypomagnesemia Current Visit: Yes Status: Acute Assessment and Plan: resolved (5) Congestive heart failure Current Visit: Yes Status: Chronic Assessment and Plan: hx of congestive heart failure, unclear if systolic vs diastolic as patient not seen in [place] for this and no Echo in our records. Plan: - restarted Lasix today as patient's O2 need increased (6) COPD (chronic obstructive pulmonary disease) Current Visit: Yes Status: Chronic Assessment and Plan: not in exacerbation. Plan: cont duonebs prn continue symbicort (7) CKD (chronic kidney disease) Current Visit: Yes Status: Chronic Assessment and Plan: Stable. Creatinine = 1.40 today. Plan: - avoid nephrotoxin meds (8) Asymptomatic bacteriuria Current Visit: Yes Status: Acute Assessment and Plan: UA shows few bacteria and leukocyte esterase. However Urine cx - no growth (9) Fall Current Visit: Yes Status: Acute Assessment and Plan: Fall 4 days ago and fell on her back. PT/OT evaluation. Recommend SNF after discharge. (10) Abdominal wall cellulitis Current Visit: Yes Status: Acute Assessment and Plan: Less redness on skin. - Time Spent with Patient Total time spent is greater than 50% in coordination of care (as documented) at patient's floor/unit and/or counseling patient: Internal Medicine: Result - Labs CBC & Chem 7: 11/21/17 06:08 11/21/17 10:25 Labs: Short CBC 11/20/17 Range/Units 05:57 Neutrophils # 11.9 H (1.6-8.9) K/mcL - ABG Interpretation ABG results: PT/INR, D-dimer PT 15.9 Seconds (9.4-12.1) H 11/19/17 04:00 Consult Discharge Plan - Plan Referrals: Danilo Sharma DO [Primary Care Provider] - <Marleny Amato - Last Filed: 11/21/17 15:45> Hospitalist Progress Note - Encounter Date of Encounter: 11/21/17 - Exam Vitals: Temp Pulse Resp BP Pulse Ox 100.0 F H 69 18 119/59 97 11/21/17 14:04 11/21/17 14:04 11/21/17 14:04 11/21/17 14:04 11/21/17 14:04 - Assessment and Plan (1) Abdominal wall mass Current Visit: Yes Status: Acute (2) Hypokalemia Current Visit: Yes Status: Acute (3) Prolonged QT interval Current Visit: Yes Status: Acute (4) Hypomagnesemia Current Visit: Yes Status: Acute (5) Congestive heart failure Current Visit: Yes Status: Chronic (6) COPD (chronic obstructive pulmonary disease) Current Visit: Yes Status: Chronic (7) CKD (chronic kidney disease) Current Visit: Yes Status: Chronic (8) Asymptomatic bacteriuria Current Visit: Yes Status: Acute (9) Fall Current Visit: Yes Status: Acute (10) Abdominal wall cellulitis Current Visit: Yes Status: Acute - Time Spent with Patient Total time spent is greater than 50% in coordination of care (as documented) at patient's floor/unit and/or counseling patient: Internal Medicine: Result - Labs CBC & Chem 7: 11/21/17 06:08 11/21/17 10:25 Labs: Short CBC 11/21/17 Range/Units 06:08 WBC 14.3 H (4.3-11.1) K/mcL Hgb 8.7 L (11.5-15.4) g/dL Hct 30.3 L (35.3-44.9) % Plt Count 308 (140-400) K/mcL Neutrophils # 11.0 H (1.6-8.9) K/mcL BMP 11/21/17 10:25 Creatinine 1.26 H - ABG Interpretation ABG results: PT/INR, D-dimer PT 15.9 Seconds (9.4-12.1) H 11/19/17 04:00 - Impressions Impressions Abdomen/Pelvis CT 11/21/17 09:30 IMPRESSION: 1. Slight decreasing 12 cm complex fluid collection, likely due to an abscess, within the right lower quadrant anterior abdominal wall status post percutaneous drain. D/ / Jack Rios MD / Jack Rios MD Interpreting Provider: Jack Rios MD - Attending Attestation I examined this patient and my medical decision-making was reviewed with the Resident Physician Dr. Teresa. I agree with the documented findings, disposition and treatment plan as described except to the extent set forth below. Ms. Beckham is a 72 year old female presents wtih cc of right abdominal pain that started couple days ago and progressively worsened. Ct scan showed large soft tissue density mass within the right lateral abdominal wall wiht dimensions of [id number] with differential of rectus sheath hematoma and neoplasm. Pt does have abd wall abscess, evaluated by surgery recommended IR abscess drainage. Patient had percutaneous drainage catheter placed in y/d. She still have some purulent discharge. However overall patient feels better today. Abd: Drainage cath + Heart: SS2+ RRR a/p 1. Acute abdominal wall abscess 2. Abd wall cellulites status post I&D by IR WBC started trending up again Wound cx - E. Coli and G+ve cocci Rocephin + added Vancomycin Repeat CT showed still has significant abscess Talked to Dr. Parsons who is planning on on taking her to [place] in [place] cont drainage cath <Rosa Teresa - Last Filed: 11/21/17 12:32> (5) Congestive heart failure Qualifiers: Heart failure type: unspecified Heart failure chronicity: chronic Qualified Code(s): I50.9 - Heart failure, unspecified (6) COPD (chronic obstructive pulmonary disease) Qualifiers: COPD type: emphysema Emphysema type: unspecified Qualified Code(s): J43.9 - Emphysema, unspecified (7) CKD (chronic kidney disease) Qualifiers: Chronic kidney disease stage: stage 3 (moderate) Qualified Code(s): N18.3 - Chronic kidney disease, stage 3 (moderate) (9) Fall Qualifiers: Encounter type: initial encounter Qualified Code(s): W19.XXXA - Unspecified fall, initial encounter <Marleny Amato - Last Filed: 11/21/17 15:45> (5) Congestive heart failure Qualifiers: Heart failure type: unspecified Heart failure chronicity: chronic Qualified Code(s): I50.9 - Heart failure, unspecified (6) COPD (chronic obstructive pulmonary disease) Qualifiers: COPD type: emphysema Emphysema type: unspecified Qualified Code(s): J43.9 - Emphysema, unspecified (7) CKD (chronic kidney disease) Qualifiers: Chronic kidney disease stage: stage 3 (moderate) Qualified Code(s): N18.3 - Chronic kidney disease, stage 3 (moderate) (9) Fall Qualifiers: Encounter type: initial encounter Qualified Code(s): W19.XXXA - Unspecified fall, initial encounter
[2017-11-21] MEDS: Budesonide/Formoterol 160/4.5 1 PUFF INH IH SCH ×2 (07:58→21:41)
[2017-11-21] MEDS ORDERED: Vancomycin 1 EACH in 0.9 % Sodium Chloride 250 ML IVPB PRN (08:00)
[2017-11-21 08:05] LABS: Eosinophils % 4.3 %; Immature Granulocytes % 1.3 % (0-4)
[2017-11-21 08:06] LABS: Basophils % 0.3 %; Eosinophils # 0.6 K/mcL (0.0-0.6); Hematocrit 30.3 % (35.3-44.9); Hemoglobin 8.7 g/dL (11.5-15.4); Lymphocytes # 1.4 K/mcL (0.6-4.6); Lymphocytes % 9.6 %; Mean Corpuscular HGB Conc 28.7 g/dL (31.6-35.5); Mean Corpuscular Hemoglobin 23.9 pg (28.0-33.3); Mean Corpuscular Volume 83.2 fL (83.0-100.0); Mean Platelet Volume 8.6 fL (9.4-12.4); Monocytes # 1.1 K/mcL (0.0-1.3); Monocytes % 7.5 %; Platelet Count 308 K/mcL (140-400); Red Blood Count 3.64 M/mcL (3.82-4.97); Red Cell Distribution Width 16.1 % (11.5-14.5)
[2017-11-21 09:05] LABS: Polychromasia 1+ (Not Present)
[2017-11-21 09:06] LABS: Platelet Estimate Normal (Normal)
[2017-11-21] MEDS: Gabapentin 400 MG CAPSULE PO SCH ×2 (09:44→21:21)
[2017-11-21] MEDS: Aspirin Enteric Coated 81 MG Tablet PO SCH (09:45)
[2017-11-21] MEDS ORDERED: Vancomycin 500 MG in 0.9 % Sodium Chloride Mini Bag 100 ML IVPB ONE (12:00)
--- NOTE | 2017-11-21 12:31 | General Surgery Consult Note ---
Date of Encounter: 11/21/17 Time of Encounter: 12:21 History of Present Illness Requesting physician: Marleny Amato History of present illness: General Surgery - Called to see patient regarding persistent abscess right upper anterior abdominal wall. Percutaneous drainage completed by [facility], 11/18/17. Thick foul-smelling feculent material was evacuated. Cultures show pansensitive Escherichia coli. There has been delayed identification of a gram-positive cocci - presumptive Streptococcus anginosus. The patient remains afebrile, hemodynamically stable but leukocytosis has increased to 14.3; differential notable for neutrophilia 11.0 The abdominal wall is nontender except where the drain enters the skin. There are no elicited peritoneal signs Daily Larry-López drainage ranging from approximately 55 mL for calendar day ; 45 mL for calendar day 11/20 and 80 mL so far today. CT this AM demonstrates new trace bilateral pleural effusions with atelectasis; an incompletely imaged moderate to large hiatal hernia; stable moderate intrahepatic and extrahepatic ductal dilatation with pneumobilia; only a slight decrease in the complex fluid collection in the subcutaneous tissue right upper anterior abdominal wall. This abscess cavity initially measured 7.3 x 12 cm, it currently measures 6.1 x 12 cm The fluid is extremely thick, foul-smelling and feculent. It does not appear that the drain will be sufficient to evacuate this abscess cavity. Surgical debridement has been recommended. I have discussed this with Dr. Amtao as well as the patient. Risks of surgery include continued infection, persistent or recurrent abscess, failure to heal, respiratory failure, worsening CHF. The patient expresses understanding and is willing to proceed with the recommended surgical debridement. Consent has been obtained. Past Med Surg Social Fam HX - Past Medical History Medical history: CHF, COPD, diabetes, hyperlipidemia, hypertension Additional medical history: neuropathy Psychiatric history: depression - Past Surgical History Surgical History: appendectomy, cholecystectomy, hysterectomy - Social History Smoking Status: Never smoker Smokeless Tobacco Status: No Alcohol use: none Drug use: none - Family History Father Hx Family Cancer: Yes (prostate) Mother Hx Family Cancer: Yes (lung) Medications and Allergies Alendronate Sodium 70 mg PO TU 11/17/17 [History] Aspirin [[place] Aspirin EC] 81 mg PO DAILY 11/17/17 [History] Carvedilol [Coreg] 6.25 mg PO DAILY 11/17/17 [History] Citalopram [CeleXA] 20 mg PO HS 11/17/17 [History] Cyanocobalamin (Vitamin B-12) [B-12] 500 mcg PO DAILY 11/17/17 [History] Esomeprazole Magnesium [Nexium] 40 mg PO DAILY 11/17/17 [History] Furosemide [Lasix] 40 mg PO DAILY 11/17/17 [History] Gabapentin [Neurontin] 800 mg PO HS 11/17/17 [History] Lovastatin [Mevacor] 20 mg PO HS 11/17/17 [History] ALPRAZolam [Xanax 1 MG Tablet] 1 mg PO TID PRN 11/18/17 [History] Mirtazapine [Remeron] 15 mg PO HS 11/18/17 [History] OxyCODONE/APAP 10/325 [Percocet 10/325 MG] 1 each PO BID PRN 11/18/17 [History] Trazodone HCl 300 mg PO HS 11/18/17 [History] 3 Allergy/AdvReac Type Severity Reaction Status Date / Time latex Allergy Rash Verified 11/17/17 21:55 codeine AdvReac Hallucinati Verified 11/17/17 18:12 ng Review of Systems All systems PM: The remainder of the systems were reviewed and are negative General Surgery Exam Initial Vital Signs Temp Pulse Resp BP Pulse Ox 98.6 F 97 16 152/89 94 11/17/17 18:10 11/17/17 18:10 11/17/17 18:10 11/17/17 18:10 11/17/17 18:10 Exam Initial Vital Signs Temp Pulse Resp BP Pulse Ox 98.6 F 97 16 152/89 94 11/17/17 18:10 11/17/17 18:10 11/17/17 18:10 11/17/17 18:10 11/17/17 18:10 Results - Labs 11/21/17 06:08 11/21/17 10:25 Abnormal lab results WBC 14.3 K/mcL (4.3-11.1) H 11/21/17 06:08 RBC 3.64 M/mcL (3.82-4.97) L 11/21/17 06:08 Hgb 8.7 g/dL (11.5-15.4) L 11/21/17 06:08 Hct 30.3 % (35.3-44.9) L 11/21/17 06:08 MCH 23.9 pg (28.0-33.3) L 11/21/17 06:08 MCHC 28.7 g/dL (31.6-35.5) L 11/21/17 06:08 RDW 16.1 % (11.5-14.5) H 11/21/17 06:08 MPV 8.6 fL (9.4-12.4) L 11/21/17 06:08 Neutrophils # 11.0 K/mcL (1.6-8.9) H 11/21/17 06:08 Polychromasia 1+ (Not Present) A 11/21/17 06:08 Hypochromasia Present (Not Present) A 11/20/17 05:57 PT 15.9 Seconds (9.4-12.1) H 11/19/17 04:00 Creatinine 1.26 mg/dL (0.60-1.20) H 11/21/17 10:25 Est GFR ( Amer) 50 (> 60) L 11/21/17 10:25 Est GFR (Non-Af Amer) 42 (> 60) L 11/21/17 10:25 Glucose 117 mg/dL (70-105) H 11/20/17 05:57 POC Glucose 131 mg/dL (70-99) H 11/19/17 22:04 Calcium 8.5 mg/dL (8.6-10.3) L 11/20/17 05:57 Alkaline Phosphatase 141 Units/L (34-104) H 11/17/17 19:32 Albumin 3.1 g/dL (3.5-5.7) L 11/17/17 19:32 Globulin 4.7 g/dL (2.4-3.5) H 11/17/17 19:32 Albumin/Globulin Ratio 0.7 (1.1-2.2) L 11/17/17 19:32 Ur Leukocyte Esterase Small (Negative) H 11/17/17 19:40 Urine Microscopic WBC 3-5 per hpf (0-3) H 11/17/17 19:40 Ur Squamous Epith Cells Moderate per lpf (None-Few) H 11/17/17 19:40 Ur Culture Indicated? YES (NO) A 11/17/17 19:40 Diabetes panel 11/21/17 Range/Units 10:25 Creatinine 1.26 H (0.60-1.20) mg/dL Pituitary panel 11/21/17 Range/Units 10:25 Creatinine 1.26 H (0.60-1.20) mg/dL Adrenal panel 11/21/17 Range/Units 10:25 Creatinine 1.26 H (0.60-1.20) mg/dL All other labs normal. Consult Discharge Plan - Plan Referrals: Danilo Sharma DO [Primary Care Provider] -
[2017-11-21] MEDS: cefTRIAXone 2,000 MG in Water for inj. (sterile) 20 ML 20 ML IVP SCH (17:21)
--- NOTE | 2017-11-21 18:42 | Anesthesia Evaluation PreOp ---
Date of Encounter: 11/21/17 Time of Encounter: 21:34 - Past History Planned Operation: EXCISION OF ABDOMINAL WALL ABCESS Cardiac History: HTN, Hyperlipidemia Pulmonary History: COPD (SEVERE, HOME O2 3LPM) [employer] History: Other (ANXIETY, DEPRESSION) Other Medical History: Renal (CKD), Diabetes Type II, GERD (LARGE HIATAL HERNIA BY CT SCAN), Other (MORBID OBESITY, BMI 46, ANEMIA) Anesthesia History: No Prior Anesthetic Complications, Past Anesthesia ( appendectomy, cholecystectomy, hysterectomy) Alcohol Use: none Drug use: none Medications and Allergies Alendronate Sodium 70 mg PO TU 11/17/17 [History] Aspirin [[place] Aspirin EC] 81 mg PO DAILY 11/17/17 [History] Carvedilol [Coreg] 6.25 mg PO DAILY 11/17/17 [History] Citalopram [CeleXA] 20 mg PO HS 11/17/17 [History] Cyanocobalamin (Vitamin B-12) [B-12] 500 mcg PO DAILY 11/17/17 [History] Esomeprazole Magnesium [Nexium] 40 mg PO DAILY 11/17/17 [History] Furosemide [Lasix] 40 mg PO DAILY 11/17/17 [History] Gabapentin [Neurontin] 800 mg PO HS 11/17/17 [History] Lovastatin [Mevacor] 20 mg PO HS 11/17/17 [History] ALPRAZolam [Xanax 1 MG Tablet] 1 mg PO TID PRN 11/18/17 [History] Mirtazapine [Remeron] 15 mg PO HS 11/18/17 [History] OxyCODONE/APAP 10/325 [Percocet 10/325 MG] 1 each PO BID PRN 11/18/17 [History] Trazodone HCl 300 mg PO HS 11/18/17 [History] 3 Allergy/AdvReac Type Severity Reaction Status Date / Time latex Allergy Rash Verified 11/17/17 21:55 codeine AdvReac Hallucinati Verified 11/17/17 18:12 ng - Meds/Allergy Pre-op Review Medications Reviewed: Yes Allergies Reviewed: Yes Beta Blockers on Current Med List: Yes If Beta Blockers taken, Date/Time (Last Dose taken): SEE MAR Anesthesia Results - Labs 11/21/17 06:08 11/21/17 10:25 Laboratory Last Values PT 15.9 Seconds (9.4-12.1) H 11/19/17 04:00 Creatinine 1.26 mg/dL (0.60-1.20) H 11/21/17 10:25 Est GFR ( Amer) 50 (> 60) L 11/21/17 10:25 Est GFR (Non-Af Amer) 42 (> 60) L 11/21/17 10:25 Alkaline Phosphatase 141 Units/L (34-104) H 11/17/17 19:32 Potassium 4.0 mEq/L (3.5-5.1) 11/20/17 05:57 Chloride 104 mEq/L (98-107) 11/20/17 05:57 Carbon Dioxide 28 mEq/L (23-29) 11/20/17 05:57 BUN 18 mg/dL (8-23) 11/20/17 05:57 Creatinine 1.26 mg/dL (0.60-1.20) H 11/21/17 10:25 Est GFR ( Amer) 50 (> 60) L 11/21/17 10:25 Est GFR (Non-Af Amer) 42 (> 60) L 11/21/17 10:25 Calcium 8.5 mg/dL (8.6-10.3) L 11/20/17 05:57 Magnesium 1.9 mg/dL (1.6-2.6) 11/20/17 05:57 - Imaging EKG: report reviewed Anesthesia Exam Vital Signs/O2 Sat/Glucose, Most Recent Temp Pulse Resp BP Pulse Ox 100.0 F H 69 18 119/59 97 11/21/17 14:04 11/21/17 14:04 11/21/17 14:04 11/21/17 14:04 11/21/17 14:04 Blood Glucose* 131 HEIGHT 1.42 m WEIGHT 93 kg BMI 46 NPO (# of Hours): 8 - HEENT Mallampati: II Teeth: Edentulous Denture Type: Upper: Complete, Lower: Complete Oral Opening: Greater than 3 - Cardiac Rhythm: Regular - Pulmonary Breath Sounds: bilateral Clear Respiratory Effort: Symmetrical - Additional Findings Active Medications Albuterol/Ipratropium (Duoneb) 3 ml IH [id number] PRN PRN Reason: Shortness Of Breath/Wheezing Stop: 05/19/18 23:20 Last Admin: 11/19/17 16:30 Dose: 3 ml Aspirin (Aspirin Ec) 81 mg PO DAILY ITZ Stop: 05/20/18 09:01 Last Admin: 11/21/17 09:45 Dose: 81 mg Budesonide/Formoterol Fumarate (Symbicort) 1 puff IH BIDRESP ITZ PRN Reason: Protocol Stop: 05/20/18 10:01 Last Admin: 11/21/17 07:58 Dose: 1 puff Carvedilol (Coreg) 6.25 mg PO DAILY ITZ PRN Reason: Protocol Stop: 05/20/18 09:01 Last Admin: 11/21/17 09:45 Dose: 6.25 mg Citalopram Hydrobromide (Celexa) 20 mg PO DAILY ITZ Stop: 05/20/18 09:01 Last Admin: 11/21/17 09:44 Dose: 20 mg Gabapentin (Neurontin) 800 mg PO BID ITZ Stop: 05/22/18 21:01 Last Admin: 11/21/17 09:44 Dose: 800 mg Ceftriaxone Sodium 2,000 mg/ (Sterile Water) 20 mls @ 600 mls/hr IVP Q24H ITZ Stop: 05/22/18 17:01 Last Admin: 11/21/17 17:21 Dose: 600 mls/hr Vancomycin HCl 1 each/ Sodium (Chloride) 250 mls @ 167 mls/hr IVPB RPHPROT PRN ; Protocol PRN Reason: VANCOMYCIN Stop: 05/23/18 08:01 Omeprazole (Prilosec) 40 mg PO DAILY ITZ Stop: 05/20/18 09:01 Last Admin: 11/21/17 09:45 Dose: 40 mg Oxycodone HCl (Oxycodone Oral Conc) 5 mg SL Q6HR PRN; Protocol PRN Reason: Severe Pain Stop: 05/20/18 09:01 Last Admin: 11/20/17 21:26 Dose: 5 mg Potassium Chloride (Potassium Chloride) 20 meq PO DAILY ITZ Stop: 05/21/18 09:01 Last Admin: 11/21/17 09:45 Dose: 20 meq Simvastatin (Zocor) 10 mg PO HS ITZ Stop: 05/20/18 21:01 Last Admin: 11/20/17 21:26 Dose: 10 mg Tramadol HCl (Ultram) 50 mg PO Q8HR PRN PRN Reason: Moderate Pain Stop: 05/20/18 09:01 Last Admin: 11/21/17 09:45 Dose: 50 mg Trazodone HCl (Trazodone) 300 mg PO HS ITZ Stop: 05/20/18 21:01 Last Admin: 11/20/17 21:25 Dose: 300 mg Anesthesia Assess/Plan ASA Score: 3 Modified [place] Scale for Level of Consciousness: Cooperative, oriented, and tranquil Anesthetic Plan: General Monitoring Plan: Standard Monitors Recovery Plan: PACU Anes Supervising Prov Stmt: Patient informed and consented. Risks, benefits, and alternatives discussed. Patient wishes to proceed.
[2017-11-21] MEDS: traZODone 50 MG TABLET PO SCH (21:20)
[2017-11-21] MEDS: Furosemide 40 MG TABLET PO SCH (21:25)
[2017-11-21] MEDS: OXYCODONE Oral CONC 10 MG/0.5 ML ORAL.SYG SL PRN (21:33)
[2017-11-22 06:10] LABS: Immature Granulocytes % 1.6 % (0-4)
[2017-11-22 06:11] LABS: Basophils # 0.1 K/mcL (0.0-0.2); Basophils % 0.5 %; Eosinophils # 0.5 K/mcL (0.0-0.6); Eosinophils % 4.7 %; Hematocrit 28.9 % (35.3-44.9); Hemoglobin 8.2 g/dL (11.5-15.4); Lymphocytes # 1.4 K/mcL (0.6-4.6); Lymphocytes % 12.3 %; Mean Corpuscular HGB Conc 28.4 g/dL (31.6-35.5); Mean Corpuscular Hemoglobin 23.1 pg (28.0-33.3); Mean Corpuscular Volume 81.4 fL (83.0-100.0); Mean Platelet Volume 8.5 fL (9.4-12.4); Monocytes # 0.9 K/mcL (0.0-1.3); Monocytes % 7.8 %; Neutrophils # 8.1 K/mcL (1.6-8.9); Platelet Count 307 K/mcL (140-400); Red Blood Count 3.55 M/mcL (3.82-4.97); Red Cell Distribution Width 15.9 % (11.5-14.5); Segmented Neutrophils % 73.1 %
[2017-11-22 06:25] LABS: Hypochromasia Present (Not Present); Platelet Estimate Normal (Normal)
[2017-11-22] MEDS: Budesonide/Formoterol 160/4.5 1 PUFF INH IH SCH ×2 (07:42→20:19)
[2017-11-22 08:36] LABS: BUN/Creatinine Ratio 12 (6-26); Blood Urea Nitrogen 14 mg/dL (8-23); Calcium 8.8 mg/dL (8.6-10.3); Carbon Dioxide 27 mEq/L (23-29); Chloride 106 mEq/L (98-107); Ferritin 185 ng/mL (10-120); Glucose 110 mg/dL (70-105); Iron < 10 mcg/dL (50-170); Osmolality,Calculated 289 (280-300); Potassium 4.7 mEq/L (3.5-5.1); Sodium 139 mEq/L (136-145); Transferrin 150 mg/dL (203-362); eGFR For Non-African Americans 44 (> 60)
[2017-11-22] MEDS: Furosemide 40 MG TABLET PO SCH (09:03)
[2017-11-22] MEDS: Gabapentin 400 MG CAPSULE PO SCH ×2 (09:03→20:11)
[2017-11-22] MEDS: Aspirin Enteric Coated 81 MG Tablet PO SCH (09:04)
--- NOTE | 2017-11-22 09:18 | Internal Med Progress Note ---
<Rosa Teresa - Last Filed: 11/22/17 09:16> Hospitalist Progress Note - Encounter Date of Encounter: 11/22/17 Time of Encounter: 09:00 - Subjective Interval History: Mervat is a 72 y/o female with a pmh of DM, COPD, CKD, and CHF who presented to the ED with abdominal pain and found to have an abdominal wall mass. Today patient is stating that she is not having pain at rest today. Overall she feels improved from admission. She states that shortness of breath is improved from yesterday. Denies chest pain. - Exam Vitals: Temp Pulse Resp BP Pulse Ox 97.7 F 68 16 119/73 97 11/22/17 07:00 11/22/17 07:00 11/22/17 07:42 11/22/17 07:00 11/22/17 07:42 Exam: Constitutional: Alert, in no acute distress Head: Normocephalic, atraumatic Heart: Normal, regular rate and rhythm, no murmurs Lungs: On NC 2L, Clear to auscultation, no wheezes, rales, or rhonchi Abdomen: diffuse tenderness on the right upper and lower quadrant with drain in place drainage is brown, opaque fluid, distended on the right, Soft Extremities: No edema, No clubbing, radial pulse +2/4, capillary refill <2sec. Skin: Skin warm and dry,no jaundice Neurologic: Cranial nerves II through XII grossly intact, Psych: Cooperative with exam, good eye contact, cognitive function intact, speech clear, thought process logical, and goal directed - Assessment and Plan (1) Abdominal wall abscess Current Visit: Yes Status: Acute Assessment and Plan: CC: abd pain, CT showed large soft tissue density mass within the right lateral abdominal wallwith dimensions of 9 x 10 by 14 cm and mild surrounding induration of subcutaneous tissues. IR placed drain which showed pus. Wound and blood cultures collected. Repeat abd CT scan on 11/21/17 showed slight decrease in size. Surgery decided need for surgical debridement, patient currently NPO awaiting debridement today. WBC improving. Plan: - drainage 80ml yesterday, 70ml today - Antibiotics: Vanco (day 2), continue Ceftriaxone ( day 3) - blood cultures 11/18 - NGTD - wound cultures 11/18 - e coli, gram + cocci, awaiting gram + cocci sensitivities - surgery consulted, surgerical debridement today - Pain: oxcodone 5mg SL Q6H, Tramadol, Tylenol - diet: NPO for surgery, regular diet after surgery - dispo: awaiting wound cultures sensitivities and debridement, probably can go either Saturday or Saturday. (2) Abdominal wall cellulitis Current Visit: Yes Status: Acute Assessment and Plan: WBC improved today. Surgical debridement, see plan above. (3) Hypokalemia Current Visit: Yes Status: Acute Assessment and Plan: Resolved. (4) Prolonged QT interval Current Visit: Yes Status: Resolved Assessment and Plan: Resolved. EKG showed QTC of 540. 2/2 to hypokalemia and hypomagnesemia. Replaced electrolytes. Repeat EKG showed Qtc = 448. Improved with improvement of hypokalemia and hypomagnesemia. Plan: - d/c tele -avoid meds that prolong QT (5) Hypomagnesemia Current Visit: Yes Status: Acute Assessment and Plan: resolved (6) Congestive heart failure Current Visit: Yes Status: Chronic Assessment and Plan: hx of congestive heart failure, unclear if systolic vs diastolic as patient not seen in [place] for this and no Echo in our records. Restarted home Lasix yesterday, patient's O2 requirement decreased to 2 L. Patient is on 3 L at home. Plan: - continue home med: Lasix 40mg daily (7) COPD (chronic obstructive pulmonary disease) Current Visit: Yes Status: Chronic Assessment and Plan: not in exacerbation. Plan: cont duonebs prn continue symbicort (8) CKD (chronic kidney disease) Current Visit: Yes Status: Chronic Assessment and Plan: Stable. Creatinine = 1.20 today. Plan: - avoid nephrotoxin meds (9) Fall Current Visit: Yes Status: Acute Assessment and Plan: Fall 4 days ago and fell on her back. PT/OT evaluation. Recommend SNF after discharge. (10) Morbid obesity with BMI of 45.0-49.9, adult Current Visit: Yes Status: Acute (11) Chronic anemia Current Visit: Yes Status: Acute Assessment and Plan: No active bleeding. Low iron, Transferrin low, ferritin high therefore anemia of chronic disease. DVT Prophylaxis: SCDs. Heparin contraindicated abdominal wall cellulitis. activity up with assistance TID. - Time Spent with Patient Total time spent is greater than 50% in coordination of care (as documented) at patient's floor/unit and/or counseling patient: Plan of Care Discussed with: patient Internal Medicine: Result - Labs CBC & Chem 7: 11/22/17 05:44 11/22/17 05:44 Labs: Short CBC 11/22/17 Range/Units 05:44 WBC 11.1 (4.3-11.1) K/mcL Hgb 8.2 L (11.5-15.4) g/dL Hct 28.9 L (35.3-44.9) % Plt Count 307 (140-400) K/mcL Neutrophils # 8.1 (1.6-8.9) K/mcL BMP 11/21/17 11/22/17 10:25 05:44 Sodium 139 Potassium 4.7 Chloride 106 Carbon Dioxide 27 BUN 14 Creatinine 1.26 H 1.20 Glucose 110 H Calcium 8.8 - ABG Interpretation ABG results: PT/INR, D-dimer PT 15.9 Seconds (9.4-12.1) H 11/19/17 04:00 - Impressions Impressions Abdomen/Pelvis CT 11/21/17 09:30 IMPRESSION: 1. Slight decreasing 12 cm complex fluid collection, likely due to an abscess, within the right lower quadrant anterior abdominal wall status post percutaneous drain. D/ / Jack Rios MD / Jack Rios MD Interpreting Provider: Jack Rios MD Consult Discharge Plan - Plan Referrals: Ruddy Parsons MD [Non-Partnered Physician] - Danilo Sharma DO [Primary Care Provider] - <Marleny Amato - Last Filed: 11/22/17 17:02> Hospitalist Progress Note - Encounter Date of Encounter: 11/22/17 - Exam Vitals: Temp Pulse Resp BP Pulse Ox 98.2 F 78 16 108/89 100 11/22/17 16:18 11/22/17 16:18 11/22/17 16:18 11/22/17 16:18 11/22/17 16:18 - Assessment and Plan (1) Hypokalemia Current Visit: Yes Status: Acute (2) Prolonged QT interval Current Visit: Yes Status: Resolved (3) Hypomagnesemia Current Visit: Yes Status: Acute (4) Congestive heart failure Current Visit: Yes Status: Chronic (5) COPD (chronic obstructive pulmonary disease) Current Visit: Yes Status: Chronic (6) CKD (chronic kidney disease) Current Visit: Yes Status: Chronic (7) Fall Current Visit: Yes Status: Acute (8) Abdominal wall cellulitis Current Visit: Yes Status: Acute (9) Abdominal wall abscess Current Visit: Yes Status: Acute (10) Morbid obesity with BMI of 45.0-49.9, adult Current Visit: Yes Status: Acute (11) Chronic anemia Current Visit: Yes Status: Acute - Time Spent with Patient Total time spent is greater than 50% in coordination of care (as documented) at patient's floor/unit and/or counseling patient: Internal Medicine: Result - Labs CBC & Chem 7: 11/22/17 05:44 11/22/17 05:44 Labs: Short CBC 11/22/17 Range/Units 05:44 WBC 11.1 (4.3-11.1) K/mcL Hgb 8.2 L (11.5-15.4) g/dL Hct 28.9 L (35.3-44.9) % Plt Count 307 (140-400) K/mcL Neutrophils # 8.1 (1.6-8.9) K/mcL BMP 11/22/17 05:44 Sodium 139 Potassium 4.7 Chloride 106 Carbon Dioxide 27 BUN 14 Creatinine 1.20 Glucose 110 H Calcium 8.8 - ABG Interpretation ABG results: PT/INR, D-dimer PT 15.9 Seconds (9.4-12.1) H 11/19/17 04:00 - Attending Attestation I examined this patient and my medical decision-making was reviewed with the Resident Physician Dr. Teresa. I agree with the documented findings, disposition and treatment plan as described except to the extent set forth below. Ms. Beckham is a 72 year old female presents wtih cc of right abdominal pain that started couple days ago and progressively worsened. Ct scan showed large soft tissue density mass within the right lateral abdominal wall wiht dimensions of [id number] with differential of rectus sheath hematoma and neoplasm. Pt does have abd wall abscess, evaluated by surgery recommended IR abscess drainage. Patient had percutaneous drainage catheter placed in y/d. She still have some purulent discharge. However overall patient feels better today. She did c/o melena Abd: Drainage cath + Heart: SS2+ RRR a/p 1. Acute abdominal wall abscess 2. Abd wall cellulites status post I&D by IR WBC started trending up again Wound cx - E. Coli and Strepto coccus Cont Rocephin d/c Vancomycin Repeat CT showed still has significant abscess Scheduled for I & D today 3. Melena will check Hemoccult Will talk to Dr. Parsons..may need out pt EGD 4. Acute on chronic anemia her Hb dropped down to 8.2 concenring for occult GI bleed Reviewed Iron studies.. does have significant Iron def anemia started on iron supplements 5. Obesity with BMI - 46 <Rosa Teresa - Last Filed: 11/22/17 09:16> (6) Congestive heart failure Qualifiers: Heart failure type: unspecified Heart failure chronicity: chronic Qualified Code(s): I50.9 - Heart failure, unspecified (7) COPD (chronic obstructive pulmonary disease) Qualifiers: COPD type: emphysema Emphysema type: unspecified Qualified Code(s): J43.9 - Emphysema, unspecified (8) CKD (chronic kidney disease) Qualifiers: Chronic kidney disease stage: stage 3 (moderate) Qualified Code(s): N18.3 - Chronic kidney disease, stage 3 (moderate) (9) Fall Qualifiers: Encounter type: initial encounter Qualified Code(s): W19.XXXA - Unspecified fall, initial encounter <Marleny Amato - Last Filed: 11/22/17 17:02> (4) Congestive heart failure Qualifiers: Heart failure type: unspecified Heart failure chronicity: chronic Qualified Code(s): I50.9 - Heart failure, unspecified (5) COPD (chronic obstructive pulmonary disease) Qualifiers: COPD type: emphysema Emphysema type: unspecified Qualified Code(s): J43.9 - Emphysema, unspecified (6) CKD (chronic kidney disease) Qualifiers: Chronic kidney disease stage: stage 3 (moderate) Qualified Code(s): N18.3 - Chronic kidney disease, stage 3 (moderate) (7) Fall Qualifiers: Encounter type: initial encounter Qualified Code(s): W19.XXXA - Unspecified fall, initial encounter
[2017-11-22] MEDS: OXYCODONE Oral CONC 10 MG/0.5 ML ORAL.SYG SL PRN ×2 (11:52→17:37)
[2017-11-22] MEDS ORDERED: Lidocaine -MPF 2% 2 ML VIAL ONE (13:57)
[2017-11-22] MEDS ORDERED: *HR* FentaNYL (PF) 100 MCG/2 ML VIAL ONE (13:57)
[2017-11-22] MEDS ORDERED: *HR* Succinylcholine 200 MG/10 ML VIAL IVP ONE (13:57)
[2017-11-22] MEDS ORDERED: *HR* Propofol 200 MG/20 ML VIAL IVP ONE (13:58)
[2017-11-22] MEDS ORDERED: Vancomycin 500 MG in 0.9 % Sodium Chloride Mini Bag 100 ML IVPB ONE (14:00)
[2017-11-22] MEDS ORDERED: Lidocaine/EPI 1:100k 1% 20 ML VIAL ONE (14:48)
[2017-11-22] MEDS ORDERED: *HR* PHENYLEPHRINE 1,000 MCG/10 ML SYRINGE IVP ONE (15:09)
[2017-11-22] MEDS ORDERED: EPHEDrine 50 MG/ML VIAL ONE (15:09)
[2017-11-22] MEDS ORDERED: Ondansetron 4 MG/2 ML VIAL ONE (15:14)
[2017-11-22] MEDS ORDERED: Dexamethasone 4 MG/ML VIAL ONE (15:14)
[2017-11-22] MEDS ORDERED: *HR* Morphine 2 MG/ML SYRINGE IVP PRN (15:36)
[2017-11-22] MEDS ORDERED: *HR* OxyCODONE Immed Rel 5 MG TABLET PO PRN (15:36)
[2017-11-22] MEDS ORDERED: Ondansetron 4 MG/2 ML VIAL IVP ONE (15:36)
--- NOTE | 2017-11-22 16:22 | Anesthesia Evaluation Post Op ---
Date of Encounter: 11/22/17 Time of Encounter: 16:21 - Vital Signs Vital Signs: Selected Entries 11/22/17 15:48 11/22/17 15:58 Temperature 97.9 F Pulse Rate 83 Respiratory Rate 16 Blood Pressure 112/62 O2 Sat by Pulse Oximetry 100 - Lungs Lungs: Clear Ascult./Percussion - Airway Airway: Non-obstructed - Cardiovascular Regular Rate - Mental Status Mental Status: Alert & Oriented, Answers Appropriately - Nausea Vomiting Nausea Vomiting: Not Present - Hydration Hydration: NPO - Discharge PostOp Status: Transfer Patient to floor
--- NOTE | 2017-11-22 16:26 | Operative Note ---
Date of procedure: 11/22/17 Pre-op diagnosis: Abscess right upper anterior abdominal wall Post-op diagnosis: same Procedure: Incision and drainage abscess right upper anterior abdominal wall Complications: None apparent Anesthesia: [facility] Surgeon: Ruddy Parsons Was there an clothing sales assistant present: No Estimated blood loss (cc): 20 Specimen: none Condition: stable Disposition: PACU Procedure in Detail: The patient was brought to the operating room where she was placed supine on the procedure table. The patient was appropriately identified as to person, procedure, and laterality. The accuracy of this patient confirmed by the patient and procedure team. The patient was then intubated and anesthetized by [facility]. The abscess was readily apparent in the right upper anterior abdominal wall. A pigtail catheter been placed by interventional radiology but this was ineffective at evacuating this extremely thick purulent fluid. There is suture retaining the drain was cut and the drain removed. On removal of the drain copious purulent fluid escaped through the drain site. The abdominal wall was prepped and draped in usual sterile fashion. The skin was incised at the drain site with the dissection extending into the cavity. Approximately 500 mL of thick foul-smelling feculent pus was evacuated with suction device but there was considerable drainage into the surgical drapes. The incision was extended. The purulent fluid was evacuated and then irrigated with approximately 4 ounces hydrogen peroxide. The cavity was then irrigated with approximately 3 L sterile saline using a PulsaVac Plus System. The abscess cavity measured 15 x 17 cm. The wound was packed with 10 yards of 2 inch iodoform gauze (5 yards per bottle). A dry sterile dressing was applied. The the patient was taken to recovery in stable condition. The patient tolerated the procedure well. Needle, sponge, and instrument counts were correct at the close of the case.
[2017-11-22] MEDS ORDERED: Naloxone 0.4 MG/ML INJ IVP PRN (16:49)
[2017-11-22] MEDS ORDERED: Dextrose Gel 15 GM/37.5 ML TUBE PO PRN ×2 (16:49)
[2017-11-22] MEDS ORDERED: *HR* Dextrose 50 % in Water (Syg) 50 ML SYRINGE IVP PRN (16:49)
[2017-11-22] MEDS ORDERED: Ipratropium/Albuterol Neb 3 ML IH PRN (16:49)
[2017-11-22] MEDS ORDERED: ALPRAZolam 1 MG TABLET PO PRN (16:49)
[2017-11-22] MEDS ORDERED: D5% in Water 1,000 ML IVC PRN (16:49)
[2017-11-22] MEDS: cefTRIAXone 2,000 MG in Water for inj. (sterile) 20 ML 20 ML IVP SCH (17:38)
[2017-11-22] MEDS: Mirtazapine 15 MG TABLET PO SCH (20:11)
[2017-11-22] MEDS: Insulin LISPRO 300 UNITS/3 ML VIAL SQ SCH (23:18)
[2017-11-23 07:13] LABS: Mean Corpuscular HGB Conc 28.8 g/dL (31.6-35.5)
[2017-11-23 07:15] LABS: Basophils % 0.3 %; Hemoglobin 7.5 g/dL (11.5-15.4); Immature Granulocytes % 1.4 % (0-4); Lymphocytes # 0.9 K/mcL (0.6-4.6); Lymphocytes % 6.4 %; Mean Corpuscular Hemoglobin 23.2 pg (28.0-33.3); Mean Corpuscular Volume 80.5 fL (83.0-100.0); Mean Platelet Volume 8.7 fL (9.4-12.4); Monocytes # 0.3 K/mcL (0.0-1.3); Monocytes % 2.2 %; Neutrophils # 12.5 K/mcL (1.6-8.9); Platelet Count 361 K/mcL (140-400); Red Blood Count 3.23 M/mcL (3.82-4.97); Red Cell Distribution Width 15.9 % (11.5-14.5); Segmented Neutrophils % 89.7 %
[2017-11-23 07:21] LABS: Calcium 9.1 mg/dL (8.6-10.3); Potassium 5.7 mEq/L (3.5-5.1)
[2017-11-23] MEDS: Insulin LISPRO 300 UNITS/3 ML VIAL SQ SCH ×5 (07:24→20:41)
[2017-11-23 07:48] LABS: Platelet Estimate Normal (Normal)
[2017-11-23 07:49] LABS: Anisocytosis 1+ (Not Present); Hypochromasia Present (Not Present); Macrocytosis Present (Not Present); Microcytosis Present (Not Present); Ovalocytes 1+ (Not Present); Poikilocytosis 1+ (Not Present)
[2017-11-23 08:36] LABS: INR 1.3; Prothrombin Time 14.9 Seconds (9.4-12.1)
[2017-11-23] MEDS: Gabapentin 400 MG CAPSULE PO SCH ×2 (08:46→20:56)
[2017-11-23] MEDS: Aspirin Enteric Coated 81 MG Tablet PO SCH (08:46)
[2017-11-23] MEDS: Furosemide 40 MG TABLET PO SCH (08:46)
[2017-11-23] MEDS: Cyanocobalamin (B-12) 1,000 MCG TABLET PO SCH (08:47)
[2017-11-23] MEDS ORDERED: Aminoglycoside Consult 1 EACH MC ONE (08:48)
[2017-11-23] MEDS ORDERED: Vancomycin 1 EACH in 0.9 % Sodium Chloride 250 ML IVPB SCH (09:00)
[2017-11-23] MEDS: Budesonide/Formoterol 160/4.5 1 PUFF INH IH SCH ×2 (13:53→20:43)
--- NOTE | 2017-11-23 14:52 | Internal Med Progress Note ---
Hospitalist Progress Note - Encounter Date of Encounter: 11/23/17 Time of Encounter: 14:00 - Subjective Interval History: Ms. Beckham is a 72 year old female presents wtih cc of right abdominal pain that started couple days ago and progressively worsened. Ct scan showed large soft tissue density mass within the right lateral abdominal wall with dimensions of [id number] with differential of rectus sheath hematoma and neoplasm. Pt does have abd wall abscess, evaluated by surgery recommended IR abscess drainage. Patient had percutaneous drainage catheter placed in on 11/18/17. Had Incision and drainage abscess right upper anterior abdominal wall on . Pt states she is feeling better now. Her abd pain also better - Exam Vitals: Temp Pulse Resp BP Pulse Ox 98.5 F 61 16 109/66 97 11/23/17 06:46 11/23/17 06:46 11/23/17 06:46 11/23/17 06:46 11/23/17 06:46 Exam: Gen: Alert, awake, Oriented to time,place and person Chest: Diminished breath sounds B/L, No wheezing, No crackles, No rales Heart: S1S2+ RRR No murmurs Abd: Soft, mildly discomfort at right right lateral abdominal wall, BS +, No organomegaly Ext: No edema, pulses are palpable, No calf tenderness Neuro : Benign findings Skin: No rash. - Assessment and Plan (1) Abdominal wall abscess Current Visit: Yes Status: Acute Assessment and Plan: s/p Incision and drainage abscess right upper anterior abdominal wall by Dr. Parsons on 11/22/17 POD # 1 Improving Wound cx growing - E. Coli and Strepto coccus susceptible to Rocephin continue Rocephin discontinue vancomycin appreciate surgery recommendations (2) Abdominal wall cellulitis Current Visit: Yes Status: Acute Assessment and Plan: Improving (3) Acute blood loss anemia Current Visit: Yes Status: Acute Assessment and Plan: Patient did mention about melena her hemoglobin kept on dropping.. Today at 7.5 no need of blood transfusions reviewed iron study she she does have iron deficiency anemia started her on iron supplements check hemoccult of stool (4) Congestive heart failure Current Visit: Yes Status: Chronic Assessment and Plan: hx of congestive heart failure, unclear if systolic vs diastolic as patient not seen in [place] for this and no Echo in our records. Restarted home Lasix, patient's O2 requirement decreased to 2 L. Patient is on 3 L at home resumed all home medications (5) COPD (chronic obstructive pulmonary disease) Current Visit: Yes Status: Chronic Assessment and Plan: not in exacerbation. She does have chronic hypoxic respiratory failure does use 3 L oxygen at home cont duonebs prn continue symbicort (6) CKD (chronic kidney disease) Current Visit: Yes Status: Chronic Assessment and Plan: Stable. Creatinine potassium slightly elevated repeat labs today (7) Fall Current Visit: Yes Status: Acute (8) Morbid obesity with BMI of 45.0-49.9, adult Current Visit: Yes Status: Acute (9) Hypokalemia Current Visit: Yes Status: Acute Assessment and Plan: Resolved. (10) Prolonged QT interval Current Visit: Yes Status: Resolved - Time Spent with Patient Total time spent is greater than 50% in coordination of care (as documented) at patient's floor/unit and/or counseling patient: Internal Medicine: Result - Labs CBC & Chem 7: 11/23/17 06:19 11/23/17 06:19 Labs: Short CBC 11/23/17 Range/Units 06:19 WBC 13.9 H (4.3-11.1) K/mcL Hgb 7.5 L (11.5-15.4) g/dL Hct 26.0 L (35.3-44.9) % Plt Count 361 (140-400) K/mcL Neutrophils # 12.5 H (1.6-8.9) K/mcL BMP 11/23/17 06:19 Sodium 137 Potassium 5.7 H Chloride 103 Carbon Dioxide 28 BUN 18 Creatinine 1.22 H Glucose 139 H Calcium 9.1 - ABG Interpretation ABG results: PT/INR, D-dimer PT 14.9 Seconds (9.4-12.1) H 11/23/17 08:07 Consult Discharge Plan - Plan Referrals: Ruddy Parsons MD [Non-Partnered Physician] - Danilo Sharma DO [Primary Care Provider] - (4) Congestive heart failure Qualifiers: Heart failure type: unspecified Heart failure chronicity: chronic Qualified Code(s): I50.9 - Heart failure, unspecified (5) COPD (chronic obstructive pulmonary disease) Qualifiers: COPD type: emphysema Emphysema type: unspecified Qualified Code(s): J43.9 - Emphysema, unspecified (6) CKD (chronic kidney disease) Qualifiers: Chronic kidney disease stage: stage 3 (moderate) Qualified Code(s): N18.3 - Chronic kidney disease, stage 3 (moderate) (7) Fall Qualifiers: Encounter type: initial encounter Qualified Code(s): W19.XXXA - Unspecified fall, initial encounter
[2017-11-23] MEDS: cefTRIAXone 2,000 MG in Water for inj. (sterile) 20 ML 20 ML IVP SCH (16:52)
[2017-11-23 17:33] LABS: Basophils % 0.2 %; Eosinophils # 0.1 K/mcL (0.0-0.6); Eosinophils % 0.4 %; Hematocrit 28.1 % (35.3-44.9); Hemoglobin 8.2 g/dL (11.5-15.4); Immature Granulocytes % 2.3 % (0-4); Lymphocytes # 1.2 K/mcL (0.6-4.6); Lymphocytes % 8.8 %; Mean Corpuscular HGB Conc 29.2 g/dL (31.6-35.5); Mean Corpuscular Hemoglobin 23.8 pg (28.0-33.3); Mean Corpuscular Volume 81.4 fL (83.0-100.0); Mean Platelet Volume 8.4 fL (9.4-12.4); Monocytes # 0.6 K/mcL (0.0-1.3); Monocytes % 4.8 %; Platelet Count 409 K/mcL (140-400); Red Blood Count 3.45 M/mcL (3.82-4.97); Red Cell Distribution Width 15.8 % (11.5-14.5); Segmented Neutrophils % 83.5 %
[2017-11-23 17:56] LABS: Potassium 5.1 mEq/L (3.5-5.1)
[2017-11-23] MEDS: Mirtazapine 15 MG TABLET PO SCH (20:56)
[2017-11-24] MEDS: Acetaminophen 325 MG TABLET PO PRN (01:22)
[2017-11-24 06:23] LABS: Mean Corpuscular HGB Conc 28.9 g/dL (31.6-35.5); Monocytes % 6.1 %
[2017-11-24 06:24] LABS: Basophils # 0.1 K/mcL (0.0-0.2); Basophils % 0.7 %; Eosinophils # 0.2 K/mcL (0.0-0.6); Eosinophils % 2.1 %; Hematocrit 24.6 % (35.3-44.9); Hemoglobin 7.1 g/dL (11.5-15.4); Immature Granulocytes % 3.6 % (0-4); Lymphocytes # 1.7 K/mcL (0.6-4.6); Lymphocytes % 19.3 %; Mean Corpuscular Hemoglobin 23.1 pg (28.0-33.3); Mean Corpuscular Volume 80.1 fL (83.0-100.0); Mean Platelet Volume 8.5 fL (9.4-12.4); Monocytes # 0.5 K/mcL (0.0-1.3); Neutrophils # 5.9 K/mcL (1.6-8.9); Nucleated Red Blood Cells 0.2 /100 WBC (0); Platelet Count 353 K/mcL (140-400); Red Blood Count 3.07 M/mcL (3.82-4.97); Segmented Neutrophils % 68.2 %
[2017-11-24 06:40] LABS: Calcium 8.8 mg/dL (8.6-10.3); Potassium 4.8 mEq/L (3.5-5.1)
[2017-11-24 06:41] LABS: Anisocytosis 1+ (Not Present); Hypochromasia Present (Not Present); Platelet Estimate Normal (Normal)
[2017-11-24] MEDS: Budesonide/Formoterol 160/4.5 1 PUFF INH IH SCH ×2 (08:14→21:48)
[2017-11-24] MEDS: Insulin LISPRO 300 UNITS/3 ML VIAL SQ SCH ×4 (08:18→21:26)
--- NOTE | 2017-11-24 09:22 | General Surgery Progress Note ---
Date of Encounter: 11/24/17 Time of Encounter: 09:13 Subjective Patient reports: feels better Narrative: General Surgery POD #2 Patient remains afebrile, hemodynamically stable; pulse 62, respirations 18, blood pressure 115/76. SPO2 on 2 L/m next cannula 95-97% Raymon incision clean and dry; no tenderness until the packing was removed. 5 yards of the total 10 yards packing placed intraoperatively removed today. The patient complained of considerable pain while this packing was removed. The wound remains clean and dry. No detected recurrent purulence. Lungs: Clear Abd: obese, soft; non tender until packing removed. Active bowel sounds. Laboratories: White count has returned to normal, 8.6; hemoglobin 7.1, hematocrit 24.6. Platelet count 353,000 Differential has also returned to normal; neutrophils 5.9. Electrolytes within normal limits, creatinine has increased to 1.41, BUN 22, estimated GFR has fallen to 36 Impression: Large abscess right upper anterior abdominal wall. Cultures have identified a pansensitive Escherichia coli and more recently Streptococcus constallatus sensitive to ampicillin, cefotaxime, ceftriaxone, Linezolid., Levofloxacin, moxifloxacin, Tigecycline, vancomycin Anemia - suspect this is due to the long-standing abscess right anterior abd wall ie anemia of chronic disease. Can consider endoscopic evaluation during this hospitalization or as an outpatient to exclude GI sources of the anemia. Recommendations: Consider reducing antibiotic therapy to ampicillin as both the Escherichia coli and Streptococcus are sensitive to this agent. This would provide noonish challenges to the impaired renal function. Anticipate removing the remainder of the packing tomorrow. Objective Vital Signs - Last 8 Hours Temp Pulse Resp BP Pulse Ox 11/24/17 08:14 16 97 11/24/17 06:28 97.7 F 62 18 115/76 95 11/24/17 04:40 97.6 F 63 15 116/70 94 Intake and Output 11/23/17 11/24/17 11/24/17 23:59 07:59 15:59 Intake Total 260 / 260 100 / 100 Output Total 400 / 400 0 / 0 700 / 700 Balance -140 / -140 100 / 100 -700 / -700 Intake: IV Fluids 20 / 20 Rocephin 2,000 MG In Water for 20 / 20 inj. (sterile) 20 ML @ 600 mls/ hr IVP Q24H [facility] Rx#:[id number] Oral 240 / 240 100 / 100 Output: Urine 400 / 400 0 / 0 700 / 700 Other: Meal Dinner Percent of Meal Consumed 75% Stool Size Small Moderate Stool Consistency loose loose soft Stool Color Brown Blood Glucose* 115 97 - Labs 11/24/17 06:01 11/24/17 06:01 Diabetes panel 11/23/17 11/24/17 Range/Units 17:21 06:01 Sodium 137 139 (136-145) mEq/L Potassium 5.1 4.8 (3.5-5.1) mEq/L Chloride 103 105 (98-107) mEq/L Carbon Dioxide 27 29 (23-29) mEq/L BUN 20 22 (8-23) mg/dL Creatinine 1.28 H 1.41 H (0.60-1.20) mg/dL Glucose 114 H 95 (70-105) mg/dL Calcium 9.0 8.8 (8.6-10.3) mg/dL Calcium panel 11/23/17 11/24/17 Range/Units 17:21 06:01 Calcium 9.0 8.8 (8.6-10.3) mg/dL Pituitary panel 11/23/17 11/24/17 Range/Units 17:21 06:01 Sodium 137 139 (136-145) mEq/L Potassium 5.1 4.8 (3.5-5.1) mEq/L Chloride 103 105 (98-107) mEq/L Carbon Dioxide 27 29 (23-29) mEq/L BUN 20 22 (8-23) mg/dL Creatinine 1.28 H 1.41 H (0.60-1.20) mg/dL Glucose 114 H 95 (70-105) mg/dL Calcium 9.0 8.8 (8.6-10.3) mg/dL Adrenal panel 11/23/17 11/24/17 Range/Units 17:21 06:01 Sodium 137 139 (136-145) mEq/L Potassium 5.1 4.8 (3.5-5.1) mEq/L Chloride 103 105 (98-107) mEq/L Carbon Dioxide 27 29 (23-29) mEq/L BUN 20 22 (8-23) mg/dL Creatinine 1.28 H 1.41 H (0.60-1.20) mg/dL Glucose 114 H 95 (70-105) mg/dL Calcium 9.0 8.8 (8.6-10.3) mg/dL Consult Discharge Plan - Plan Referrals: Ruddy Parsons MD [Non-Partnered Physician] - Danilo Sharma DO [Primary Care Provider] -
[2017-11-24] MEDS: Aspirin Enteric Coated 81 MG Tablet PO SCH (09:38)
[2017-11-24] MEDS: Cyanocobalamin (B-12) 1,000 MCG TABLET PO SCH (09:38)
[2017-11-24] MEDS: Gabapentin 400 MG CAPSULE PO SCH ×2 (09:38→21:26)
[2017-11-24] MEDS: Furosemide 40 MG TABLET PO SCH (09:38)
[2017-11-24] MEDS: traMADol 50 MG TABLET PO PRN ×2 (09:47→21:28)
--- NOTE | 2017-11-24 14:27 | Internal Med Progress Note ---
Hospitalist Progress Note - Encounter Date of Encounter: 11/24/17 Time of Encounter: 11:30 - Subjective Interval History: Ms. Beckham is a 72 year old female presents wtih cc of right abdominal pain that started couple days ago and progressively worsened. Ct scan showed large soft tissue density mass within the right lateral abdominal wall with dimensions of [id number] with differential of rectus sheath hematoma and neoplasm. Pt does have abd wall abscess, evaluated by surgery recommended IR abscess drainage. Patient had percutaneous drainage catheter placed in on 11/18/17. Had Incision and drainage abscess right upper anterior abdominal wall on . Pt states she is feeling better now. Her abd pain also better. No events over night - Exam Vitals: Temp Pulse Resp BP Pulse Ox 98.2 F 78 18 95/55 98 11/24/17 10:21 11/24/17 10:21 11/24/17 10:21 11/24/17 10:21 11/24/17 10:21 Exam: Gen: Alert, awake, Oriented to time,place and person Chest: Diminished breath sounds B/L, No wheezing, No crackles, No rales Heart: S1S2+ RRR No murmurs Abd: Soft, mildly discomfort at right right lateral abdominal wall, BS +, No organomegaly..Dressing placed over RUQ Ext: No edema, pulses are palpable, No calf tenderness Neuro : Benign findings Skin: No rash. - Assessment and Plan (1) Abdominal wall abscess Current Visit: Yes Status: Acute Assessment and Plan: s/p Incision and drainage abscess right upper anterior abdominal wall by Dr. Parsons on 11/22/17 POD # 2 Improving Wound cx growing - E. Coli and Strepto coccus susceptible to Rocephin continue Rocephin appreciate surgery recommendations (2) Abdominal wall cellulitis Current Visit: Yes Status: Acute Assessment and Plan: Improving (3) Acute blood loss anemia Current Visit: Yes Status: Acute Assessment and Plan: Patient did mention about melena her hemoglobin kept on dropping.. Today at 7.1 no need of blood transfusions reviewed iron study she she does have iron deficiency anemia started her on IV Venofer and PO iron supplements (4) Congestive heart failure Current Visit: Yes Status: Chronic Assessment and Plan: hx of congestive heart failure, unclear if systolic vs diastolic as patient not seen in [place] for this and no Echo in our records. Restarted home Lasix, patient's O2 requirement decreased to 2 L. Patient is on 3 L at home resumed all home medications (5) COPD (chronic obstructive pulmonary disease) Current Visit: Yes Status: Chronic Assessment and Plan: not in exacerbation. She does have chronic hypoxic respiratory failure does use 3 L oxygen at home cont duonebs prn continue symbicort (6) CKD (chronic kidney disease) Current Visit: Yes Status: Chronic Assessment and Plan: Stable. Creatinine potassium slightly elevated repeat labs today (7) Fall Current Visit: Yes Status: Acute Assessment and Plan: Fall 4 days ago and fell on her back. PT/OT evaluation. Recommend SNF after discharge. (8) Morbid obesity with BMI of 45.0-49.9, adult Current Visit: Yes Status: Acute (9) Hypokalemia Current Visit: Yes Status: Acute Assessment and Plan: Resolved. (10) Prolonged QT interval Current Visit: Yes Status: Resolved Assessment and Plan: Resolved - Time Spent with Patient Total time spent is greater than 50% in coordination of care (as documented) at patient's floor/unit and/or counseling patient: Internal Medicine: Result - Labs CBC & Chem 7: 11/24/17 06:01 11/24/17 06:01 Labs: Short CBC 11/23/17 11/24/17 Range/Units 17:21 06:01 WBC 13.2 H 8.6 (4.3-11.1) K/mcL Hgb 8.2 L 7.1 L (11.5-15.4) g/dL Hct 28.1 L 24.6 L (35.3-44.9) % Plt Count 409 H 353 (140-400) K/mcL Neutrophils # 11.0 H 5.9 (1.6-8.9) K/mcL BMP 11/23/17 11/24/17 17:21 06:01 Sodium 137 139 Potassium 5.1 4.8 Chloride 103 105 Carbon Dioxide 27 29 BUN 20 22 Creatinine 1.28 H 1.41 H Glucose 114 H 95 Calcium 9.0 8.8 - ABG Interpretation ABG results: PT/INR, D-dimer PT 14.9 Seconds (9.4-12.1) H 11/23/17 08:07 Consult Discharge Plan - Plan Referrals: Ruddy Parsons MD [Non-Partnered Physician] - Danilo Sharma DO [Primary Care Provider] - (4) Congestive heart failure Qualifiers: Heart failure type: unspecified Heart failure chronicity: chronic Qualified Code(s): I50.9 - Heart failure, unspecified (5) COPD (chronic obstructive pulmonary disease) Qualifiers: COPD type: emphysema Emphysema type: unspecified Qualified Code(s): J43.9 - Emphysema, unspecified (6) CKD (chronic kidney disease) Qualifiers: Chronic kidney disease stage: stage 3 (moderate) Qualified Code(s): N18.3 - Chronic kidney disease, stage 3 (moderate) (7) Fall Qualifiers: Encounter type: initial encounter Qualified Code(s): W19.XXXA - Unspecified fall, initial encounter
[2017-11-24] MEDS: cefTRIAXone 2,000 MG in Water for inj. (sterile) 20 ML 20 ML IVP SCH (16:42)
[2017-11-24] MEDS: Mirtazapine 15 MG TABLET PO SCH (21:25)
[2017-11-25 06:59] LABS: Red Cell Distribution Width 16.1 % (11.5-14.5)
[2017-11-25 07:00] LABS: Basophils # 0.1 K/mcL (0.0-0.2); Eosinophils # 0.5 K/mcL (0.0-0.6); Eosinophils % 5.7 %; Hematocrit 26.6 % (35.3-44.9); Hemoglobin 7.5 g/dL (11.5-15.4); Immature Granulocytes % 3.9 % (0-4); Lymphocytes # 1.7 K/mcL (0.6-4.6); Lymphocytes % 20.6 %; Mean Corpuscular HGB Conc 28.2 g/dL (31.6-35.5); Mean Corpuscular Hemoglobin 23.1 pg (28.0-33.3); Mean Corpuscular Volume 81.8 fL (83.0-100.0); Mean Platelet Volume 8.1 fL (9.4-12.4); Monocytes # 0.7 K/mcL (0.0-1.3); Monocytes % 7.9 %; Nucleated Red Blood Cells 0.2 /100 WBC (0); Platelet Count 380 K/mcL (140-400); Red Blood Count 3.25 M/mcL (3.82-4.97); Segmented Neutrophils % 60.9 %
[2017-11-25 07:08] LABS: Neutrophils # 5.1 K/mcL (1.6-8.9)
[2017-11-25 07:27] LABS: Platelet Estimate Normal (Normal)
[2017-11-25 07:49] LABS: Calcium 8.8 mg/dL (8.6-10.3); Potassium 4.8 mEq/L (3.5-5.1)
[2017-11-25] MEDS: Budesonide/Formoterol 160/4.5 1 PUFF INH IH SCH ×2 (08:02→19:53)
[2017-11-25] MEDS: Insulin LISPRO 300 UNITS/3 ML VIAL SQ SCH ×4 (08:20→21:23)
[2017-11-25] MEDS: Aspirin Enteric Coated 81 MG Tablet PO SCH (09:06)
[2017-11-25] MEDS: Gabapentin 400 MG CAPSULE PO SCH ×2 (09:07→20:21)
[2017-11-25] MEDS: Furosemide 40 MG TABLET PO SCH (09:07)
[2017-11-25] MEDS: Cyanocobalamin (B-12) 1,000 MCG TABLET PO SCH (09:08)
[2017-11-25] MEDS: Acetaminophen 325 MG TABLET PO PRN (09:21)
--- NOTE | 2017-11-25 12:56 | General Surgery Progress Note ---
Date of Encounter: 11/25/17 Time of Encounter: 12:54 Subjective Patient reports: no new complaints, feels better Narrative: General Surgery - POD #3 Patient remains afebrile, hemodynamically stable - 97.7, pulse 70, respirations 16, blood pressure 126/54. Abdomen: Soft nontender. Large abscess right upper anterior abdominal wall. Moderate serosanguineous drainage. Remainder packing removed. Wound appears clean. Impression: Begin wound irrigations with half-strength hydrogen peroxide twice a day Consult wound care for possible Wound VAC placement Discussed with Dr Amato Objective Vital Signs - Last 8 Hours Temp Pulse Resp BP Pulse Ox 11/25/17 10:48 97.7 F 70 16 126/54 92 11/25/17 08:02 16 99 11/25/17 08:00 98.5 F 72 16 116/66 96 11/25/17 06:26 97.9 F 73 16 111/62 96 Intake and Output 11/24/17 11/25/17 11/25/17 23:59 07:59 15:59 Intake Total 865 / 865 0 / 0 345 / 345 Output Total 0 / 0 0 / 0 Balance 865 / 865 0 / 0 345 / 345 Intake: IV Fluids 125 / 125 105 / 105 Rocephin 2,000 MG In Water for 20 / 20 inj. (sterile) 20 ML @ 600 mls/ hr IVP Q24H ITZ Rx#:[id number] Venofer 100 MG In 0.9 % Sodium 105 / 105 105 / 105 Chloride 100 ML @ 200 mls/hr IVPB DAILY ITZ Rx#:[id number] Oral 740 / 740 0 / 0 240 / 240 Output: Urine 0 / 0 0 / 0 Other: Meal Dinner Breakfast Percent of Meal Consumed 100% 100% Stool Size Small Moderate Stool Consistency soft loose Stool Characteristics Normal for Patient Stool Color Brown Brown # Voids 1 1 # Urine Diapers 0 # Bowel Movements 1 0 0 # Bowel Movement Diapers 0 Blood Glucose* 106 122 - Labs 11/25/17 06:12 11/25/17 06:12 Diabetes panel 11/25/17 Range/Units 06:12 Sodium 139 (136-145) mEq/L Potassium 4.8 (3.5-5.1) mEq/L Chloride 106 (98-107) mEq/L Carbon Dioxide 26 (23-29) mEq/L BUN 19 (8-23) mg/dL Creatinine 1.44 H (0.60-1.20) mg/dL Glucose 90 (70-105) mg/dL Calcium 8.8 (8.6-10.3) mg/dL Calcium panel 11/25/17 Range/Units 06:12 Calcium 8.8 (8.6-10.3) mg/dL Pituitary panel 11/25/17 Range/Units 06:12 Sodium 139 (136-145) mEq/L Potassium 4.8 (3.5-5.1) mEq/L Chloride 106 (98-107) mEq/L Carbon Dioxide 26 (23-29) mEq/L BUN 19 (8-23) mg/dL Creatinine 1.44 H (0.60-1.20) mg/dL Glucose 90 (70-105) mg/dL Calcium 8.8 (8.6-10.3) mg/dL Adrenal panel 11/25/17 Range/Units 06:12 Sodium 139 (136-145) mEq/L Potassium 4.8 (3.5-5.1) mEq/L Chloride 106 (98-107) mEq/L Carbon Dioxide 26 (23-29) mEq/L BUN 19 (8-23) mg/dL Creatinine 1.44 H (0.60-1.20) mg/dL Glucose 90 (70-105) mg/dL Calcium 8.8 (8.6-10.3) mg/dL Consult Discharge Plan - Plan Referrals: Ruddy Parsons MD [Non-Partnered Physician] - Danilo Sharma DO [Primary Care Provider] -
--- NOTE | 2017-11-25 16:19 | Internal Med Progress Note ---
<Inocencia White - Last Filed: 11/25/17 16:48> Hospitalist Progress Note - Encounter Date of Encounter: 11/25/17 Time of Encounter: 16:17 - Subjective Interval History: Mr. Beckham is feeling great today. She states that she is no longer having pain and that she feels significantly better than she did on arrival. She denies any nausea, vomiting, abdominal pain, chills or fevers. Her appetite has been good as well. - Exam Vitals: Temp Pulse Resp BP Pulse Ox 98.6 F 82 16 96/57 96 11/25/17 14:46 11/25/17 14:46 11/25/17 14:46 11/25/17 14:46 11/25/17 14:46 Exam: Gen: Alert, awake, Oriented to time,place and person Chest: CTAB, No wheezing, No crackles, No rales Heart: S1S2+ RRR No murmurs Abd: Soft, mild tenderness. Dressing placed over RUQ without significant drainage. Abscess site without signs of infection, not purulent drainage or erythema. Ext: No edema - Assessment and Plan (1) Abdominal wall abscess Current Visit: Yes Status: Acute Assessment and Plan: Infectious etiology, serology positive for Escherichia coli and Streptococcus Initial abscess measuring 9 x 10 x 14 cm with mild surrounding induration of subcutaneous tissue S/P incision and drainage of abscess in right upper anterior abdominal wall by Dr. Parsons on 11/22 POD #3 Patient continues to improve, reporting no pain today Plan: Stop Rocephin, switch to ampicillin 4 times a day for 6 days Surgery following - packing has been removed and wound continues to appear clean with moderate serosanguineous drainage Wound care consult for further recommendations (2) Acute blood loss anemia Current Visit: Yes Status: Acute Assessment and Plan: Unclear etiology, patient reported melena Hemoglobin was 10.4 on admission now 7.5 s/p Venofer infusion Iron less than 10, transferrin 150, ferritin 185 Plan: Unclear source of blood loss, consider EGD as an outpatient, appreciate surgery recommendations Continue iron supplementation Continue Venofer infusion daily for today and tomorrow (3) Congestive heart failure Current Visit: Yes Status: Chronic Assessment and Plan: Compensated. Unclear if systolic versus diastolic. No recorded echo in our records. Plan: Continue Lasix by mouth daily as tolerated Wean oxygen as tolerated, on 3 L at home Continue home medications (4) CKD (chronic kidney disease) Current Visit: Yes Status: Chronic Assessment and Plan: Stable. Creatinine 1.44 today Electrolytes stable We will continue to monitor (5) COPD (chronic obstructive pulmonary disease) Current Visit: Yes Status: Chronic Assessment and Plan: Without exacerbation Chronic hypoxic respiratory failure on 3 L O2 at home Continue duo nebs PRN Continue Symbicort (6) Fall Current Visit: Yes Status: Acute Assessment and Plan: Reported fall 5 days prior, without acute injury PT/OT recommending SNF/ECF going home DVT Prophylaxis: SCDs. Heparin contraindicated abdominal wall cellulitis. activity up with assistance TID. - Time Spent with Patient Total time spent is greater than 50% in coordination of care (as documented) at patient's floor/unit and/or counseling patient: 25 - 35 minutes Plan of Care Discussed with: patient Internal Medicine: Result - Labs CBC & Chem 7: 11/25/17 06:12 11/25/17 06:12 Labs: Short CBC 11/25/17 Range/Units 06:12 WBC 8.3 (4.3-11.1) K/mcL Hgb 7.5 L (11.5-15.4) g/dL Hct 26.6 L (35.3-44.9) % Plt Count 380 (140-400) K/mcL Neutrophils # 5.1 (1.6-8.9) K/mcL BMP 11/25/17 06:12 Sodium 139 Potassium 4.8 Chloride 106 Carbon Dioxide 26 BUN 19 Creatinine 1.44 H Glucose 90 Calcium 8.8 - ABG Interpretation ABG results: PT/INR, D-dimer PT 14.9 Seconds (9.4-12.1) H 11/23/17 08:07 Consult Discharge Plan - Plan Referrals: Ruddy Parsons MD [Non-Partnered Physician] - Danilo Sharma DO [Primary Care Provider] - <Marleny Amato - Last Filed: 11/25/17 18:11> Hospitalist Progress Note - Encounter Date of Encounter: 11/25/17 - Exam Vitals: Temp Pulse Resp BP Pulse Ox 98.6 F 82 16 96/57 96 11/25/17 14:46 11/25/17 14:46 11/25/17 14:46 11/25/17 14:46 11/25/17 14:46 - Assessment and Plan (1) Abdominal wall abscess Current Visit: Yes Status: Acute (2) Abdominal wall cellulitis Current Visit: Yes Status: Acute (3) Acute blood loss anemia Current Visit: Yes Status: Acute (4) Congestive heart failure Current Visit: Yes Status: Chronic (5) COPD (chronic obstructive pulmonary disease) Current Visit: Yes Status: Chronic (6) CKD (chronic kidney disease) Current Visit: Yes Status: Chronic (7) Fall Current Visit: Yes Status: Acute (8) Morbid obesity with BMI of 45.0-49.9, adult Current Visit: Yes Status: Acute (9) Hypokalemia Current Visit: Yes Status: Acute (10) Prolonged QT interval Current Visit: Yes Status: Resolved - Time Spent with Patient Total time spent is greater than 50% in coordination of care (as documented) at patient's floor/unit and/or counseling patient: Internal Medicine: Result - Labs CBC & Chem 7: 11/25/17 06:12 11/25/17 06:12 Labs: Short CBC 11/25/17 Range/Units 06:12 WBC 8.3 (4.3-11.1) K/mcL Hgb 7.5 L (11.5-15.4) g/dL Hct 26.6 L (35.3-44.9) % Plt Count 380 (140-400) K/mcL Neutrophils # 5.1 (1.6-8.9) K/mcL BMP 11/25/17 06:12 Sodium 139 Potassium 4.8 Chloride 106 Carbon Dioxide 26 BUN 19 Creatinine 1.44 H Glucose 90 Calcium 8.8 - ABG Interpretation ABG results: PT/INR, D-dimer PT 14.9 Seconds (9.4-12.1) H 11/23/17 08:07 - Attending Attestation I examined this patient and my medical decision-making was reviewed with the Resident Physician Dr. White. I agree with the documented findings, disposition and treatment plan as described except to the extent set forth below. Ms. Beckham is a 72 year old female presents wt cc of right abdominal pain that started couple days ago and progressively worsened. Ct scan showed large soft tissue density mass within the right lateral abdominal wall with dimensions of [id number] with differential of rectus sheath hematoma and neoplasm. Pt does have abd wall abscess, evaluated by surgery recommended IR abscess drainage. Patient had percutaneous drainage catheter placed in on 11/18/17. Had Incision and drainage abscess right upper anterior abdominal wall on . Pt states she is feeling better now. Her abd pain also better. No events over night. Will switch to PO Abx Amoxicillin. Also her Hb improving slowly with IV Iron . <Inocencia White - Last Filed: 11/25/17 16:48> (3) Congestive heart failure Qualifiers: Heart failure type: unspecified Heart failure chronicity: chronic Qualified Code(s): I50.9 - Heart failure, unspecified (4) CKD (chronic kidney disease) Qualifiers: Chronic kidney disease stage: stage 3 (moderate) Qualified Code(s): N18.3 - Chronic kidney disease, stage 3 (moderate) (5) COPD (chronic obstructive pulmonary disease) Qualifiers: COPD type: emphysema Emphysema type: unspecified Qualified Code(s): J43.9 - Emphysema, unspecified (6) Fall Qualifiers: Encounter type: initial encounter Qualified Code(s): W19.XXXA - Unspecified fall, initial encounter <Marleny Amato - Last Filed: 11/25/17 18:11> (4) Congestive heart failure Qualifiers: Heart failure type: unspecified Heart failure chronicity: chronic Qualified Code(s): I50.9 - Heart failure, unspecified (5) COPD (chronic obstructive pulmonary disease) Qualifiers: COPD type: emphysema Emphysema type: unspecified Qualified Code(s): J43.9 - Emphysema, unspecified (6) CKD (chronic kidney disease) Qualifiers: Chronic kidney disease stage: stage 3 (moderate) Qualified Code(s): N18.3 - Chronic kidney disease, stage 3 (moderate) (7) Fall Qualifiers: Encounter type: initial encounter Qualified Code(s): W19.XXXA - Unspecified fall, initial encounter
[2017-11-25] MEDS: cefTRIAXone 2,000 MG in Water for inj. (sterile) 20 ML 20 ML IVP SCH (16:36)
[2017-11-25] MEDS: traMADol 50 MG TABLET PO PRN (18:36)
[2017-11-25] MEDS: Amoxicillin 500 MG CAPSULE PO SCH (20:21)
[2017-11-25] MEDS: Mirtazapine 15 MG TABLET PO SCH (20:21)
[2017-11-26 06:43] LABS: Eosinophils # 0.4 K/mcL (0.0-0.6); Hematocrit 26.8 % (35.3-44.9); Hemoglobin 7.6 g/dL (11.5-15.4); Mean Corpuscular HGB Conc 28.4 g/dL (31.6-35.5); Mean Corpuscular Hemoglobin 23.6 pg (28.0-33.3); Mean Corpuscular Volume 83.2 fL (83.0-100.0); Monocytes # 0.6 K/mcL (0.0-1.3); Nucleated Red Blood Cells 0.3 /100 WBC (0); Platelet Count 370 K/mcL (140-400); Red Blood Count 3.22 M/mcL (3.82-4.97); Red Cell Distribution Width 16.1 % (11.5-14.5)
[2017-11-26 07:04] LABS: Potassium 4.3 mEq/L (3.5-5.1)
[2017-11-26 07:39] LABS: Lymphocytes # 2.6 K/mcL (0.6-4.6); Neutrophils # 3.3 K/mcL (1.6-8.9)
[2017-11-26 07:40] LABS: Anisocytosis 2+ (Not Present); Hypochromasia Present (Not Present); Microcytosis Present (Not Present); Platelet Estimate Normal (Normal)
[2017-11-26] MEDS: Budesonide/Formoterol 160/4.5 1 PUFF INH IH SCH ×2 (07:43→19:57)
[2017-11-26] MEDS: Insulin LISPRO 300 UNITS/3 ML VIAL SQ SCH ×4 (08:12→21:24)
[2017-11-26] MEDS: Furosemide 40 MG TABLET PO SCH (08:12)
[2017-11-26] MEDS: Cyanocobalamin (B-12) 1,000 MCG TABLET PO SCH (08:12)
[2017-11-26] MEDS: Aspirin Enteric Coated 81 MG Tablet PO SCH (08:13)
[2017-11-26] MEDS: Gabapentin 400 MG CAPSULE PO SCH ×2 (08:13→21:02)
[2017-11-26] MEDS: Amoxicillin 500 MG CAPSULE PO SCH ×2 (08:13→21:02)
[2017-11-26] MEDS: OXYCODONE Oral CONC 10 MG/0.5 ML ORAL.SYG SL PRN ×2 (09:08→21:01)
--- NOTE | 2017-11-26 16:08 | Internal Med Progress Note ---
<Inocencia White - Last Filed: 11/26/17 17:17> Hospitalist Progress Note - Encounter Date of Encounter: 11/26/17 Time of Encounter: 10:52 - Subjective Interval History: Mrs. Beckham is a 72 year old female with a history of DM, COPD, CKD, and CHF , who presented to the ED on 11/17 with abdominal pain and a 2 week history of increasing abdominal bulge and was found to have an abscess measuring 9x 10 x 14cm. Initially the abscess was aspirated with a drainage tube placed on 11/18, however the drainage was not sufficient, so Dr. Parsons performed and incision and drainage of the abscess on 11/24. Cultures of the fluid was positive for E. Coli and Streptococcus. She has no complaints today and is ready to go home. She states that she is no longer having pain and that she feels significantly better than she did on arrival. She has been placed on a wound vac, which had some blood. She denies any nausea, vomiting, abdominal pain, chills or fevers. Her appetite has been good as well. - Exam Vitals: Temp Pulse Resp BP Pulse Ox 99.3 F 81 16 141/76 98 11/26/17 14:44 11/26/17 14:44 11/26/17 14:44 11/26/17 14:44 11/26/17 14:44 Exam: Gen: Alert, awake, Oriented to time,place and person Chest: CTAB, No wheezing, No crackles Heart: S1S2+ RRR No murmurs Abd: Soft, mild tenderness. Wound vac in place over the right upper abdominal wound without purulent drainage, blood seen in the wound vac. Ext: No edema - Assessment and Plan (1) Abdominal wall abscess Current Visit: Yes Status: Acute Assessment and Plan: Infectious etiology, serology positive for Escherichia coli and Streptococcus Initial abscess measuring 9 x 10 x 14 cm with mild surrounding induration of subcutaneous tissue S/P incision and drainage of abscess in right upper anterior abdominal wall by Dr. Parsons on 11/22 POD #4 Patient without complaint today. Plan: Continue Amoxicillin for 5 more days (14 day course) Surgery following, appreciate recommendations for discharge, patient will also need outpatient follow-up Wound care following, wound vac placed today Outpatient follow-up with PCP and Surgery for possible EGD (2) Acute blood loss anemia Current Visit: Yes Status: Acute Assessment and Plan: Unclear etiology, patient reported melena Hgb stable at 7.6 s/p Venofer infusion x 3 Iron less than 10, transferrin 150, ferritin 185 Plan: Unclear source of blood loss, consider EGD as an outpatient, appreciate surgery recommendations Stopped Venofer infusion Continue oral iron supplementation Continue B12 supplement with outpatient follow-up (3) Congestive heart failure Current Visit: Yes Status: Chronic Assessment and Plan: Compensated. Unclear if systolic versus diastolic. No recorded echo in our records. Plan: Continue Lasix by mouth daily as tolerated Wean oxygen as tolerated, on 3 L at home Continue home medications (4) CKD (chronic kidney disease) Current Visit: Yes Status: Chronic Assessment and Plan: Stable. Creatinine 1.28 today Electrolytes stable We will continue to monitor (5) COPD (chronic obstructive pulmonary disease) Current Visit: Yes Status: Chronic Assessment and Plan: Without exacerbation Chronic hypoxic respiratory failure on 3 L O2 at home Continue duo nebs PRN Continue Symbicort (6) Fall Current Visit: Yes Status: Acute Assessment and Plan: Reported fall 5 days prior, without acute injury PT/OT recommending SNF/ECF going home DVT Prophylaxis: SCDs. Heparin contraindicated abdominal wall cellulitis. activity up with assistance TID. - Time Spent with Patient Total time spent is greater than 50% in coordination of care (as documented) at patient's floor/unit and/or counseling patient: less than 15 minutes Plan of Care Discussed with: patient Internal Medicine: Result - Labs CBC & Chem 7: 11/26/17 05:56 11/26/17 05:56 Labs: Short CBC 11/26/17 Range/Units 05:56 WBC 6.9 (4.3-11.1) K/mcL Hgb 7.6 L (11.5-15.4) g/dL Hct 26.8 L (35.3-44.9) % Plt Count 370 (140-400) K/mcL Neutrophils # 3.3 (1.6-8.9) K/mcL BMP 11/26/17 05:56 Sodium 140 Potassium 4.3 Chloride 106 Carbon Dioxide 27 BUN 16 Creatinine 1.28 H Glucose 100 Calcium 9.0 - ABG Interpretation ABG results: PT/INR, D-dimer PT 14.9 Seconds (9.4-12.1) H 11/23/17 08:07 Consult Discharge Plan - Plan Referrals: Ruddy Parsons MD [Non-Partnered Physician] - Danilo Sharma DO [Primary Care Provider] - <Elo Jade - Last Filed: 11/26/17 18:18> Hospitalist Progress Note - Encounter Date of Encounter: 11/26/17 - Exam Vitals: Temp Pulse Resp BP Pulse Ox 99.3 F 81 16 141/76 98 11/26/17 14:44 11/26/17 14:44 11/26/17 14:44 11/26/17 14:44 11/26/17 14:44 - Assessment and Plan (1) Hypokalemia Current Visit: Yes Status: Acute (2) Prolonged QT interval Current Visit: Yes Status: Resolved (3) Congestive heart failure Current Visit: Yes Status: Chronic (4) COPD (chronic obstructive pulmonary disease) Current Visit: Yes Status: Chronic (5) CKD (chronic kidney disease) Current Visit: Yes Status: Chronic (6) Fall Current Visit: Yes Status: Acute (7) Abdominal wall cellulitis Current Visit: Yes Status: Acute (8) Abdominal wall abscess Current Visit: Yes Status: Acute (9) Morbid obesity with BMI of 45.0-49.9, adult Current Visit: Yes Status: Acute (10) Acute blood loss anemia Current Visit: Yes Status: Acute - Time Spent with Patient Total time spent is greater than 50% in coordination of care (as documented) at patient's floor/unit and/or counseling patient: Internal Medicine: Result - Labs CBC & Chem 7: 11/26/17 05:56 11/26/17 05:56 Labs: Short CBC 11/26/17 Range/Units 05:56 WBC 6.9 (4.3-11.1) K/mcL Hgb 7.6 L (11.5-15.4) g/dL Hct 26.8 L (35.3-44.9) % Plt Count 370 (140-400) K/mcL Neutrophils # 3.3 (1.6-8.9) K/mcL BMP 11/26/17 05:56 Sodium 140 Potassium 4.3 Chloride 106 Carbon Dioxide 27 BUN 16 Creatinine 1.28 H Glucose 100 Calcium 9.0 - ABG Interpretation ABG results: PT/INR, D-dimer PT 14.9 Seconds (9.4-12.1) H 11/23/17 08:07 - Attending Attestation I have seen and examined this pt independently. I have discussed with resident physician Dr. White regarding the management plan. Agree with the documentation. <Inocencia White - Last Filed: 11/26/17 17:17> (3) Congestive heart failure Qualifiers: Heart failure type: unspecified Heart failure chronicity: chronic Qualified Code(s): I50.9 - Heart failure, unspecified (4) CKD (chronic kidney disease) Qualifiers: Chronic kidney disease stage: stage 3 (moderate) Qualified Code(s): N18.3 - Chronic kidney disease, stage 3 (moderate) (5) COPD (chronic obstructive pulmonary disease) Qualifiers: COPD type: emphysema Emphysema type: unspecified Qualified Code(s): J43.9 - Emphysema, unspecified (6) Fall Qualifiers: Encounter type: initial encounter Qualified Code(s): W19.XXXA - Unspecified fall, initial encounter <Elo Jade - Last Filed: 11/26/17 18:18> (3) Congestive heart failure Qualifiers: Heart failure type: unspecified Heart failure chronicity: chronic Qualified Code(s): I50.9 - Heart failure, unspecified (4) COPD (chronic obstructive pulmonary disease) Qualifiers: COPD type: emphysema Emphysema type: unspecified Qualified Code(s): J43.9 - Emphysema, unspecified (5) CKD (chronic kidney disease) Qualifiers: Chronic kidney disease stage: stage 3 (moderate) Qualified Code(s): N18.3 - Chronic kidney disease, stage 3 (moderate) (6) Fall Qualifiers: Encounter type: initial encounter Qualified Code(s): W19.XXXA - Unspecified fall, initial encounter
[2017-11-26] MEDS: Mirtazapine 15 MG TABLET PO SCH (21:02)
[2017-11-27 04:21] LABS: Red Cell Distribution Width 16.2 % (11.5-14.5)
[2017-11-27 04:23] LABS: Basophils # 0.1 K/mcL (0.0-0.2); Basophils % 0.8 %; Eosinophils # 0.4 K/mcL (0.0-0.6); Eosinophils % 5.9 %; Hematocrit 25.2 % (35.3-44.9); Hemoglobin 7.1 g/dL (11.5-15.4); Immature Granulocytes % 6.1 % (0-4); Lymphocytes % 26.8 %; Mean Corpuscular HGB Conc 28.2 g/dL (31.6-35.5); Mean Corpuscular Hemoglobin 23.8 pg (28.0-33.3); Mean Corpuscular Volume 84.6 fL (83.0-100.0); Monocytes # 0.6 K/mcL (0.0-1.3); Monocytes % 7.5 %; Neutrophils # 3.9 K/mcL (1.6-8.9); Nucleated Red Blood Cells 0.3 /100 WBC (0); Platelet Count 343 K/mcL (140-400); Red Blood Count 2.98 M/mcL (3.82-4.97); Segmented Neutrophils % 52.9 %
[2017-11-27 04:38] LABS: Calcium 8.6 mg/dL (8.6-10.3); Potassium 4.5 mEq/L (3.5-5.1)
[2017-11-27 05:42] LABS: Anisocytosis 1+ (Not Present); Hypochromasia Present (Not Present); Platelet Estimate Normal (Normal)
[2017-11-27] MEDS: Budesonide/Formoterol 160/4.5 1 PUFF INH IH SCH (08:06)
[2017-11-27] MEDS: Cyanocobalamin (B-12) 1,000 MCG TABLET PO SCH (09:48)
[2017-11-27] MEDS: Amoxicillin 500 MG CAPSULE PO SCH (09:48)
[2017-11-27] MEDS: Gabapentin 400 MG CAPSULE PO SCH (09:48)
[2017-11-27] MEDS: Aspirin Enteric Coated 81 MG Tablet PO SCH (09:48)
[2017-11-27] MEDS: Furosemide 40 MG TABLET PO SCH (09:48)
[2017-11-27] MEDS: Insulin LISPRO 300 UNITS/3 ML VIAL SQ SCH ×3 (09:49→15:57)
[2017-11-27] MEDS ORDERED: Lactobacillus 1 EACH CAP.SPRINK PO SCH (13:45)
[2017-11-27] MEDS ORDERED: 0.9 % Sodium Chloride 250 ML ONE (14:55)
--- NOTE | 2017-11-27 15:46 | Discharge Summary ---
Date of Encounter: 11/27/17 Time of Encounter: 13:00 - Discharge Diagnosis (1) Hypokalemia Priority: Secondary Status: Acute (2) Prolonged QT interval Priority: Secondary Status: Resolved (3) Congestive heart failure Priority: Secondary Status: Chronic Qualifiers: Heart failure type: unspecified Heart failure chronicity: chronic Qualified Code(s): I50.9 - Heart failure, unspecified (4) COPD (chronic obstructive pulmonary disease) Priority: Secondary Status: Chronic Qualifiers: COPD type: emphysema Emphysema type: unspecified Qualified Code(s): J43.9 - Emphysema, unspecified (5) CKD (chronic kidney disease) Priority: Secondary Status: Chronic Qualifiers: Chronic kidney disease stage: stage 3 (moderate) Qualified Code(s): N18.3 - Chronic kidney disease, stage 3 (moderate) (6) Fall Priority: Secondary Status: Acute Qualifiers: Encounter type: initial encounter Qualified Code(s): W19.XXXA - Unspecified fall, initial encounter (7) Abdominal wall cellulitis Priority: Primary Status: Acute (8) Abdominal wall abscess Priority: Primary Status: Acute (9) Morbid obesity with BMI of 45.0-49.9, adult Priority: Secondary Status: Acute (10) Acute blood loss anemia Priority: Secondary Status: Acute Hospital course: Ms. Beckham is a 72 year old female admitted for abdominal pain. Abdominal CT shows right upper abdominal wall collection. Patient was started with antibiotic. Surgical consult was called. Patient had IR drainage initially but finally had open drainage and debridement. Patient was placed on wound VAC. Patient has anemia, guaiac test negative, probably due to chronic inflammation. After treatment, patient has no fever, WBC get down to normal level. On by mouth antibiotic at this point, per wound culture sensitivity. Patient was offered to discharge to ECF per PTOT evaluation but patient refused to go to ECF and said her daughter lives next door to her. We will discharge patient home with home health . I have seen and examined this patient today. Patient is awake alert, oriented 3, no pain, in no acute distress. Vitals are stable. Have discussed that with surgical consult, will DC patient home with home health and home nurse will take care of the wound VAC. Patient will follow-up with PCP and surgery as outpatient. Patient will prescribe by mouth amoxicillin to finish 14 days of antibiotic treatment. Patient will give probiotics to prevent C. difficile. Discharge discussed with: patient - Time Spent with Patient Total time spent providing and/or coordinating discharge services: 40 min Greater than 30 minutes - Discharge Medications Prescriptions: Amoxicillin [Amoxil] 500 mg PO BID 5 Days #10 capsule Ferrous Sulfate 325 mg PO DAILY 30 Days #30 tablet Lactobacillus [Culturelle] 2 each PO DAILY 7 Days #14 cap.sprink Home Medications: Alendronate Sodium 70 mg PO TU 11/17/17 [History] Aspirin [[place] Aspirin EC] 81 mg PO DAILY 11/17/17 [History] Carvedilol [Coreg] 6.25 mg PO DAILY 11/17/17 [History] Citalopram [CeleXA] 20 mg PO HS 11/17/17 [History] Cyanocobalamin (Vitamin B-12) [B-12] 500 mcg PO DAILY 11/17/17 [History] Esomeprazole Magnesium [Nexium] 40 mg PO DAILY 11/17/17 [History] Furosemide [Lasix] 40 mg PO DAILY 11/17/17 [History] Gabapentin [Neurontin] 800 mg PO HS 11/17/17 [History] Lovastatin [Mevacor] 20 mg PO HS 11/17/17 [History] ALPRAZolam [Xanax 1 MG Tablet] 1 mg PO TID PRN 11/18/17 [History] Mirtazapine [Remeron] 15 mg PO HS 11/18/17 [History] OxyCODONE/APAP 10/325 [Percocet 10/325 MG] 1 each PO BID PRN 11/18/17 [History] Trazodone HCl 300 mg PO HS 11/18/17 [History] Amoxicillin [Amoxil] 500 mg PO BID 5 Days #10 capsule 11/27/17 [Rx] Ferrous Sulfate 325 mg PO DAILY 30 Days #30 tablet 11/27/17 [Rx] Lactobacillus [Culturelle] 2 each PO DAILY 7 Days #14 cap.sprink 11/27/17 [Rx] Allergies/Adverse Reactions: 3 Allergy/AdvReac Type Severity Reaction Status Date / Time latex Allergy Rash Verified 11/17/17 21:55 codeine AdvReac Hallucinati Verified 11/17/17 18:12 ng Date of admission: 11/19/17 18:12 Primary care physician: Danilo Sharma Consults: 11/25/17 12:51 Consult to Wound Care [CONS] Routine Reason for Consult: large abscess right upper anterior abd wall approx 17 x 15 cm. Wound vac placement Time Notified: 11:45 Call Completed: Yes 11/25/17 12:53 Consult to Fabrication Supervisor [CONS] Routine Reason for SW Consult: Home Health / wound care Discharging clinician: Elo Jade Anticipated date of discharge: 11/27/17 - Constitutional Vitals: Temp Pulse Resp BP Pulse Ox 98.4 F 74 16 110/63 98 11/27/17 15:37 11/27/17 15:37 11/27/17 15:37 11/27/17 15:37 11/27/17 15:37 General appearance: Present: A&O X 3, pleasant, no acute distress Exam: In NAD - Head Head exam: Present: atraumatic, normocephalic - Eye Eye exam: Present: PERRL, conjuntiva pink, sclera anicteric Pupils: Present: PERRL - Neck Neck exam general surgery: Present: supple, trachea midline. Absent: lymphadenopathy - Respiratory Respiratory exam: Present: CTAB. Absent: accessory muscle use, rales, rhonchi, wheezes - Cardiovascular Cardiovascular exam: Present: RRR, +S1, +S2. Absent: diastolic murmur, gallop, rubs, systolic murmur - GI/Abdominal GI/Abdominal exam: Present: normal bowel sounds, soft, no peritoneal signs. Absent: distended, tenderness Additional comments: Abd wall abscess on wound VAC. - Extremities Exam Extremities exam: Present: warm, radial pulses palpable and symmetrical. Absent : calf tenderness, cyanotic, pedal edema - Neurological Exam Neurological exam: Present: CN II-XII intact, oriented X3, no focal deficits. Absent: pronater drift, facial droop, speech deficit - Skin Skin exam: Present: dry, intact - Patient Status Disposition: Home Health Service Condition: Good Functional capacity at discharge: uses cane/walker Overall status at discharge: patient is progressing back to baseline - Discharge Instructions Follow Up With: Ruddy Parsons MD [Non-Partnered Physician] - Danilo Sharma DO [Primary Care Provider] - - Diet and Activity Activity: as per physical therapy Diet: diabetic diet
--- NOTE | 2017-11-27 16:02 | Physician Discharge Referral ---
Home Health/Hosp Referral Info Transfer to: Home Health Provider in Charge Post Discharge: PCP - Diagnosis (1) Hypokalemia Priority: Secondary Status: Acute (2) Prolonged QT interval Priority: Secondary Status: Resolved (3) Congestive heart failure Priority: Secondary Status: Chronic (4) COPD (chronic obstructive pulmonary disease) Priority: Secondary Status: Chronic (5) CKD (chronic kidney disease) Priority: Secondary Status: Chronic (6) Fall Priority: Secondary Status: Acute (7) Abdominal wall cellulitis Priority: Primary Status: Acute (8) Abdominal wall abscess Priority: Primary Status: Acute (9) Morbid obesity with BMI of 45.0-49.9, adult Priority: Secondary Status: Acute (10) Acute blood loss anemia Priority: Secondary Status: Acute - Respiratory Orders Oxygen / L per min (2-3) Smoking Cessation: Smoking cessation has been advised. For more information, call the [employer] Tobacco Quit Line at 5-560-FCIJ-NOW. - Dressing/Wound Care Site: Right upper abd wall, wound VAC management per Dr Parsons instruction. Type of Dressing/Treatments w/Frequency: Per Surgical instruction. - Diet/Nutrition Diet/Nutrition Orders: No Concentrated Sweets - Services Needed Following services are medically necessary services: Nursing, Home Health Aide, Physical Therapy, Occupational Therapy - Transfer Medications Prescriptions: Amoxicillin [Amoxil] 500 mg PO BID 5 Days #10 capsule Ferrous Sulfate 325 mg PO DAILY 30 Days #30 tablet Lactobacillus [Culturelle] 2 each PO DAILY 7 Days #14 cap.sprink Home Medications: Alendronate Sodium 70 mg PO TU 11/17/17 [History] Aspirin [[place] Aspirin EC] 81 mg PO DAILY 11/17/17 [History] Carvedilol [Coreg] 6.25 mg PO DAILY 11/17/17 [History] Citalopram [CeleXA] 20 mg PO HS 11/17/17 [History] Cyanocobalamin (Vitamin B-12) [B-12] 500 mcg PO DAILY 11/17/17 [History] Esomeprazole Magnesium [Nexium] 40 mg PO DAILY 11/17/17 [History] Furosemide [Lasix] 40 mg PO DAILY 11/17/17 [History] Gabapentin [Neurontin] 800 mg PO HS 11/17/17 [History] Lovastatin [Mevacor] 20 mg PO HS 11/17/17 [History] ALPRAZolam [Xanax 1 MG Tablet] 1 mg PO TID PRN 11/18/17 [History] Mirtazapine [Remeron] 15 mg PO HS 11/18/17 [History] OxyCODONE/APAP 10/325 [Percocet 10/325 MG] 1 each PO BID PRN 11/18/17 [History] Trazodone HCl 300 mg PO HS 11/18/17 [History] Amoxicillin [Amoxil] 500 mg PO BID 5 Days #10 capsule 11/27/17 [Rx] Ferrous Sulfate 325 mg PO DAILY 30 Days #30 tablet 11/27/17 [Rx] Lactobacillus [Culturelle] 2 each PO DAILY 7 Days #14 cap.sprink 11/27/17 [Rx] Allergies/Adverse Reactions: 3 Allergy/AdvReac Type Severity Reaction Status Date / Time latex Allergy Rash Verified 11/17/17 21:55 codeine AdvReac Hallucinati Verified 11/17/17 18:12 ng Certification: Further, I certify that my clinical findings support that this patient is homebound (i.e. absences from home require considerable and taxing effort and are for medical reasons or sikh services or infrequently or short duration when for other reasons) because: Homebound Reason: Patient requires assistance of a person or device to safely leave home, Post-surgery restriction and or conditions limit ability to leave home Attestation: My signature below is to certify that this patient is under my care and that I, or nurse practitioner, or a physician's licensed physical therapy assistant working with me, has a face-to -face encounter with this patient.
[2017-11-27 18:16] VITALS: BP 128/87
== END 2017-11-27 19:48 | disposition home health service (06) | DRG 580 ==
LOC: 3ANU 18:08 → EMEROOARM 18:08 → 3ANU 23:32 → SUATTDRO 11-19 18:12
PROVIDERS: ADMIT Internal Medicine; ATTEND Internal Medicine